=== PATIENT | male | born 1960 | race Caucasian/White ===

== ENCOUNTER 2017-02-05 13:09 | Inpatient (IN) | payer BC ==
[~2017-02-05] VITALS: Ht 177.8 cm; Wt 81.0 kg
[2017-02-05 13:11] VITALS: BP 143/89; PULSE 103; RESP 12; TEMP 99.8; O2SAT 96
[2017-02-05] MEDS ORDERED: RILP25 PO (13:30)
[2017-02-05] MEDS ORDERED: DOLU1TAB PO (13:30)
[2017-02-05] MEDS ORDERED: SODIUM CHLORIDE 0.9% FLUSH 10 ML FLUSH IV FLUSH PRN ×2 (13:30→15:00)
[2017-02-05] MEDS ORDERED: VALA1TAB PO (13:30)
[2017-02-05] MEDS ORDERED: LAMI1TAB8 PO (13:30)
[2017-02-05] MEDS ORDERED: PALI1TAB3 PO (13:30)
--- NOTE | 2017-02-05 13:32 | PD ---
HPI Chief Complaint: Abdominal Pain Time Seen by Provider: 13:24 Travel History International Travel<30 days: No Contact w/Intl Traveler<30days: No Traveled to known affect area: No History of Present Illness HPI This is a 56-year-old male who has a history of well-controlled HIV who presents to the emergency department with 3 days of abdominal distention and discomfort feeling like a pressure in his abdomen all over, associated with nausea and one episode of vomiting yesterday. He has had some loose stools but he took a laxative because he thought he was constipated. He denies any fevers or chills. He's never had abdominal surgery before. He's never had pain like this before. PFSH Past Medical History Medical other: Yes (hiv +) Tetanus Vaccination: Unknown Influenza Vaccination: Yes ?: Not Past Surgical History Surgical History: No Previous Surgery Social History Alcohol Use: No Tobacco Use: No Substance Use: No Allergies-Medications (Allergen,Severity, Reaction): Coded Allergies: Abacavir (Verified Allergy, Intermediate, rash, 02/05/17) Reported Meds & Prescriptions Reported Meds & Active Scripts Active Reported Edurant (Rilpivirine) 25 Mg Tab 25 Mg PO DAILY Tivicay (Dolutegravir Sodium) 50 Mg Tab 50 Mg PO DAILY Lamivudine 300 Mg Tab 300 Mg PO DAILY Paliperidone ER 6 Mg Tab 6 Mg PO DAILY Valacyclovir (Valacyclovir HCl) 1 Gm Tab 1,000 Mg PO DAILY Review of Systems Except as stated in HPI: all other systems reviewed are Neg Physical Exam Narrative GENERAL:Well appearing, no acute distress SKIN: Focused skin assessment warm and dry. HEAD: Atraumatic. Normocephalic. EYES: Pupils equal and round. No injection or drainage. Scleral icterus. ENT: Moist mucous membranes NECK: Trachea midline. CARDIOVASCULAR: Regular rate and rhythm. No murmur appreciated. RESPIRATORY: Clear to auscultation. Breath sounds equal bilaterally. GASTROINTESTINAL: Abdomen soft, distended, tender to palpation in the epigastrium, right upper quadrant and right lower quadrants with no rebound or guarding. Hepatomegaly. MUSCULOSKELETAL: No obvious deformities. NEUROLOGICAL: Awake and alert. No obvious cranial nerve deficits. Moving all extremities. PSYCHIATRIC: Appropriate mood and affect; insight and judgment normal. Data Data Last Documented VS Vital Signs Date Time Temp Pulse Resp B/P Pulse Ox O2 Delivery O2 Flow Rate FiO2 4/12/17 13:42 99 Room Air 02/05/17 13:24 16 02/05/17 13:11 99.8 103 143/89 Orders Complete Blood Count With Diff (02/05/17 13:30) Comprehensive Metabolic Panel (02/05/17 13:30) Lipase (02/05/17 13:30) Prothrombin Time / Inr (Pt) (02/05/17 13:30) Act Partial Throm Time (Ptt) (02/05/17 13:30) Urinalysis - C+S If Indicated (02/05/17 13:30) Us Abdomen Gallbladder (02/05/17 ) Iv Access Insert/Monitor (02/05/17 13:30) Ecg Monitoring (02/05/17 13:30) Oximetry (02/05/17 13:30) Sodium Chloride 0.9% Flush (Ns Flush) (02/05/17 13:30) Piperacil-Tazo 3.375 Gm Premix (Zosyn 3. (02/05/17 14:45) Sodium Chlor 0.9% 1000 Ml Inj (Ns 1000 M (02/05/17 14:45) Sodium Chlor 0.9% 1000 Ml Inj (Ns 1000 M (02/05/17 14:45) Lactic Acid (02/05/17 14:34) Mri Mrcp W/O Contrast (02/05/17 ) Consult Gastroenterology (02/05/17 ) Labs Laboratory Tests Test 02/05/17 02/05/17 13:42 13:49 White Blood Count 9.2 TH/MM3 Red Blood Count 4.80 MIL/MM3 Hemoglobin 15.4 GM/DL Hematocrit 43.9 % Mean Corpuscular Volume 91.5 FL Mean Corpuscular Hemoglobin 32.2 PG Mean Corpuscular Hemoglobin 35.2 % Concent Red Cell Distribution Width 15.7 % Platelet Count 135 TH/MM3 Mean Platelet Volume 8.1 FL Neutrophils (%) (Auto) 75.6 % Lymphocytes (%) (Auto) 13.4 % Monocytes (%) (Auto) 10.6 % Eosinophils (%) (Auto) 0.2 % Basophils (%) (Auto) 0.2 % Neutrophils # (Auto) 7.0 TH/MM3 Lymphocytes # (Auto) 1.2 TH/MM3 Monocytes # (Auto) 1.0 TH/MM3 Eosinophils # (Auto) 0.0 TH/MM3 Basophils # (Auto) 0.0 TH/MM3 CBC Comment DIFF FINAL Differential Comment Prothrombin Time 11.5 SEC Prothromb Time International 1.0 RATIO Ratio Activated Partial 27.9 SEC Thromboplast Time Sodium Level 134 MEQ/L Potassium Level 4.0 MEQ/L Chloride Level 100 MEQ/L Carbon Dioxide Level 26.4 MEQ/L Anion Gap 8 MEQ/L Blood Urea Nitrogen 15 MG/DL Creatinine 1.10 MG/DL Estimat Glomerular Filtration 69 ML/MIN Rate Random Glucose 150 MG/DL Calcium Level 9.2 MG/DL Total Bilirubin 5.9 MG/DL Aspartate Amino Transf 122 U/L (AST/SGOT) Alanine Aminotransferase 309 U/L (ALT/SGPT) Alkaline Phosphatase 75 U/L Total Protein 7.7 GM/DL Albumin 4.3 GM/DL Lipase 2330 U/L Urine Color YELLOW Urine Turbidity CLEAR Urine pH 5.5 Urine Specific [place] 1.023 Urine Protein 100 mg/dL Urine Glucose (UA) NEG mg/dL Urine Ketones 10 mg/dL Urine Occult Blood SMALL Urine Nitrite NEG Urine Bilirubin NEG Urine Urobilinogen 2.0 MG/DL Urine Leukocyte Esterase NEG Urine RBC LESS THAN 1 /hpf Urine WBC 1 /hpf Urine Mucus FEW /lpf Microscopic Urinalysis Comment CULT NOT INDICATED MDM Medical Decision Making Medical Screen Exam Complete: Yes Emergency Medical Condition: Yes Interpretation(s) Temperature is 99.8, mild tachycardia No leukocytosis Total bilirubin is 5.9 Mild transaminitis Lipase is 2330 Last 24 hours Impressions Gall Bladder Ultrasound 02/05/17 0000 Signed Impressions: Service Date/Time: Sunday, February 05, 2017 13:51 - CONCLUSION: Hyperechoic liver characteristic of steatosis. Non-shadowing filling defects within the gallbladder characteristic of thick sludge or noncalcified stones. No evidence of biliary obstructive disease. Bennie Perez MD Differential Diagnosis Pancreatitis, cholecystitis, choledocholithiasis, pancreatic cancer Narrative Course This is a 56-year-old male who presents to the emergency department with 3 days of abdominal discomfort and vomiting. On exam he is jaundiced. He was placed on a monitor and an IV was established. Labs are obtained which demonstrate total bilirubin of 5.9 as well as elevated lipase consistent with pancreatitis. I suspect the patient may have choledocholithiasis. Given he did have a temperature of 99.8 initially, I covered him empirically with Zosyn for early cholangitis. Ultrasound demonstrates some possible noncalcified stones with a normal common bile duct. I spoke to who agreed with MRCP as are first line of imaging. Patient will be admitted for possible choledocholithiasis and pancreatitis. Physician Communication Physician Communication Discussed with Dr. Miller and Dr. Phelps Diagnosis Primary Impression: Pancreatitis Qualified Code: K85.10 - Acute biliary pancreatitis without infection or necrosis Additional Impression: Jaundice Admitting Information Admitting Physician Requests: Admit Edie Leo MD Feb 05, 2017 13:32
[2017-02-05 13:42] VITALS: O2SAT 99
[2017-02-05 13:56] LABS: BASOPHIL % 0.2 % (0.0-2.0); EOSINOPHIL % 0.2 % (0.0-4.0); HEMATOCRIT 43.9 % (39.0-51.0); HEMO FLAGS DIFF FINAL; LYMPH % 13.4 % (9.0-44.0); LYMPHOCYTE # 1.2 TH/MM3 (1.0-4.8); MEAN CELL VOLUME 91.5 FL (80.0-100.0); MEAN CORPUSCULAR HEMOGLOBIN 32.2 PG (27.0-34.0); MEAN CORPUSCULAR HGB CONC 35.2 % (32.0-36.0); MONO % 10.6 % (0.0-8.0); NEUT % 75.6 % (16.0-70.0); PLATELET COUNT 135 TH/MM3 (150-450); RED CELL DISTRIBUTION WIDTH 15.7 % (11.6-17.2); WHITE BLOOD COUNT 9.2 TH/MM3 (4.0-11.0)
[2017-02-05 14:00] LABS: BLOOD, URINE SMALL (NEG); COMMENT (UR) CULT NOT INDICATED; CULTURE IF INDICATED CULT NOT INDICATED; GLUCOSE,URINE NEG (NEG); KETONE, URINE 10 mg/dL (NEG); MUCUS URINE FEW /lpf (OCC); NITRITE,URINE NEG (NEG); PH, URINE 5.5 (5.0-8.5); URINE COLOR YELLOW (YELLW/STRAW)
[2017-02-05 14:05] LABS: APTT (PATIENT) 27.9 SEC (24.3-30.1); PROTHROMBIN TIME - PATIENT 11.5 SEC (9.8-11.6)
[2017-02-05 14:11] LABS: ALT (GPT) 309 U/L (12-78); ANION GAP 8 MEQ/L (5-15); AST (GOT) 122 U/L (15-37); BICARBONATE 26.4 MEQ/L (21.0-32.0); BLOOD UREA NITROGEN 15 MG/DL (7-18); CHLORIDE 100 MEQ/L (98-107); GLOMERULAR FILTRATION RATE 69 ML/MIN (>89); SODIUM (NA) 134 MEQ/L (136-145)
[2017-02-05 14:14] LABS: ALKALINE PHOSPHATASE 75 U/L (45-117); TOTAL BILIRUBIN ADULT 5.9 MG/DL (0.2-1.0)
--- NOTE | 2017-02-05 14:19 | RADRPT ---
EXAM DATE/TIME: 02/05/2017 13:51 [facility] COMPARISON: No previous studies available for comparison. INDICATIONS : Right upper quadrant pain and abdominal distention. MEDICAL HISTORY : HIV. SURGICAL HISTORY : None. ENCOUNTER: Initial ACUITY: 3 days PAIN SCORE: 3/10 LOCATION: Right upper quadrant MEASUREMENTS: LIVER: 22.2 cm length COMMON DUCT: 6 mm RIGHT KIDNEY: 13.4 x 6.9 x 5.6 cm FINDINGS: LIVER: The liver is diffusely hyperechoic. There are no focal lesions or evidence of biliary duct dilatation . COMMON DUCT: No intraluminal mass or stone visualized. GALLBLADDER: None shadowing filling defects are identified in the gallbladder. There is no significant wall thicke lonnie or pericholecystic fluid. PANCREAS: The visualized portions are within normal limits. RIGHT KIDNEY: No evidence of hydronephrosis, stone, or mass. CONCLUSION: Hyperechoic liver characteristic of steatosis. Non-shadowing filling defects within the gallbladder characteristic of thick sludge or noncalcified s tones. No evidence of biliary obstructive disease. Bennie Perez MD on February 05, 2017 at 14:15 Board Certified Radiologist. This report was verified electronically.
[2017-02-05] MEDS ORDERED: PIPERACIL-TAZO 3.375 GM PREMIX 50 ML IV ONE (14:45)
[2017-02-05] MEDS ORDERED: SODIUM CHLOR 0.9% 1000 ML INJ 1,000 ML IV SCH ×2 (14:45)
[2017-02-05] MEDS ORDERED: ACETAMINOPHEN 325 MG TAB PO PRN (15:00)
[2017-02-05] MEDS ORDERED: ONDANSETRON HCL 4 MG/2 ML VIAL IVP PRN (15:00)
[2017-02-05] MEDS ORDERED: BISACODYL 10 MG SUPP RECTAL PRN (15:00)
[2017-02-05] MEDS ORDERED: NALOXONE HCL 0.4 MG/ML AMP IV PRN (15:00)
[2017-02-05 15:06] VITALS: BP 159/80; PULSE 86; RESP 15; O2SAT 98
[2017-02-05] MEDS ORDERED: ENOXAPARIN SODIUM 40 MG/0.4 ML SYRINGE SQ SCH (16:00)
--- NOTE | 2017-02-05 16:20 | HHI.HP ---
HPI Service [facility] Primary [facility] Physician Pawan Espinosa MD Admission Diagnosis pancreatitis, jaundice Diagnoses: Chief Complaint: Abdominal pain Travel History International Travel<30 Days: No Contact w/Intl Traveler <30 Da: No Traveled to Known Affected Are: No History of Present Illness This is a pleasant 56-year-old male who has a history of well-controlled HIV who presents to the emergency department with 3 days of abdominal distention and discomfort feeling like a pressure in his abdomen all over, associated with nausea and one episode of vomiting yesterday. He has had some loose stools but he took a laxative because he thought he was constipated. He denies any fevers or chills. He's never had abdominal surgery before. He's never had pain like this before. seen in Emergency room, as per patient he states the pain is generalized, and continue to be generalized, like 5/10 in intensity as a sharp sensation associated to Nausea and vomit yesterday but today improved. Review of Systems Gastrointestinal: COMPLAINS OF: Abdominal pain, Nausea, Vomiting Past Family Social History Past Medical History HIV on HAART therapy Past Surgical History Denies any Surgical history Reported Medications Reported Meds & Active Scripts Active Reported Edurant (Rilpivirine) 25 Mg Tab 25 Mg PO DAILY Tivicay (Dolutegravir Sodium) 50 Mg Tab 50 Mg PO DAILY Lamivudine 300 Mg Tab 300 Mg PO DAILY Paliperidone ER 6 Mg Tab 6 Mg PO DAILY Valacyclovir (Valacyclovir HCl) 1 Gm Tab 1,000 Mg PO DAILY Allergies: Coded Allergies: Abacavir (Verified Allergy, Intermediate, rash, 02/05/17) Active Ordered Medications Current Medications Medications (Trade) Dose Ordered Sig/Radha Route Start Time Stop Time Status Last Admin (NS 1000 ml Inj) 1,000 ml @ 100 mls/hr Q10H IV 02/05/17 15:00 (NS Flush) 2 ml UNSCH PRN IV FLUSH 02/05/17 15:00 (NS Flush) 2 ml BID IV FLUSH 02/05/17 21:00 (Tylenol) 650 mg Q4H PRN PO 02/05/17 15:00 (Zofran Inj) 4 mg Q6H PRN IVP 02/05/17 15:00 (Dulcolax Supp) 10 mg DAILY PRN RECTAL 02/05/17 15:00 (Colace) 100 mg Q12H PO 02/05/17 18:00 (Lovenox Inj) 40 mg Q24H SQ 02/05/17 16:00 (Narcan Inj) 0.4 mg UNSCH PRN IV 02/05/17 15:00 Family History Mother with Lung Cancer Social History Lives alone and denies any toxic habits. Physical Exam Vital Signs Vital Signs Date Time Temp Pulse Resp B/P Pulse Ox O2 Delivery O2 Flow Rate FiO2 02/05/17 15:06 86 15 159/80 98 Room Air 02/05/17 13:42 99 Room Air 02/05/17 13:24 16 02/05/17 13:11 99.8 103 12 143/89 96 Room Air Physical Exam GENERAL:Well appearing, no acute distress SKIN: Focused skin assessment warm and dry. HEAD: Atraumatic. Normocephalic. EYES: Pupils equal and round. No injection or drainage. Scleral icterus. ENT: Moist mucous membranes NECK: Trachea midline. CARDIOVASCULAR: Regular rate and rhythm. No murmur appreciated. RESPIRATORY: Clear to auscultation. Breath sounds equal bilaterally. GASTROINTESTINAL: Abdomen soft, distended, tender to palpation in the epigastrium, right upper quadrant and right lower quadrants with no rebound or guarding. Hepatomegaly. MUSCULOSKELETAL: No obvious deformities. NEUROLOGICAL: Awake and alert. No obvious cranial nerve deficits. Moving all extremities. PSYCHIATRIC: Appropriate mood and affect; insight and judgment normal. Laboratory Laboratory Tests Test 02/05/17 02/05/17 02/05/17 13:42 13:49 14:40 White Blood Count 9.2 Red Blood Count 4.80 Hemoglobin 15.4 Hematocrit 43.9 Mean Corpuscular Volume 91.5 Mean Corpuscular Hemoglobin 32.2 Mean Corpuscular Hemoglobin 35.2 Concent Red Cell Distribution Width 15.7 Platelet Count 135 Mean Platelet Volume 8.1 Neutrophils (%) (Auto) 75.6 Lymphocytes (%) (Auto) 13.4 Monocytes (%) (Auto) 10.6 Eosinophils (%) (Auto) 0.2 Basophils (%) (Auto) 0.2 Neutrophils # (Auto) 7.0 Lymphocytes # (Auto) 1.2 Monocytes # (Auto) 1.0 Eosinophils # (Auto) 0.0 Basophils # (Auto) 0.0 CBC Comment DIFF FINAL Differential Comment Prothrombin Time 11.5 Prothromb Time International 1.0 Ratio Activated Partial 27.9 Thromboplast Time Sodium Level 134 Potassium Level 4.0 Chloride Level 100 Carbon Dioxide Level 26.4 Anion Gap 8 Blood Urea Nitrogen 15 Creatinine 1.10 Estimat Glomerular Filtration 69 Rate Random Glucose 150 Calcium Level 9.2 Total Bilirubin 5.9 Aspartate Amino Transf 122 (AST/SGOT) Alanine Aminotransferase 309 (ALT/SGPT) Alkaline Phosphatase 75 Total Protein 7.7 Albumin 4.3 Lipase 2330 Urine Color YELLOW Urine Turbidity CLEAR Urine pH 5.5 Urine Specific [place] 1.023 Urine Protein 100 Urine Glucose (UA) NEG Urine Ketones 10 Urine Occult Blood SMALL Urine Nitrite NEG Urine Bilirubin NEG Urine Urobilinogen 2.0 Urine Leukocyte Esterase NEG Urine RBC LESS THAN 1 Urine WBC 1 Urine Mucus FEW Microscopic Urinalysis Comment CULT NOT INDICATED Lactic Acid Level 1.0 Result Diagram: 02/05/17 1342 02/05/17 1342 Imaging Last Impressions Gall Bladder Ultrasound 02/05/17 0000 Signed Impressions: Service Date/Time: Sunday, February 05, 2017 13:51 - CONCLUSION: Hyperechoic liver characteristic of steatosis. Non-shadowing filling defects within the gallbladder characteristic of thick sludge or noncalcified stones. No evidence of biliary obstructive disease. Bennie Perez MD Assessment and Plan Assessment and Plan 1. Acute Pancreatitis, Lipase 2330 2. Hyperbilirubinemia 3. Cholecystitis suspected on admission was given IV antibiotics, he had low grade fever and probable no Leukocytosis due to HIV consult made to Doctor Miller by ER specialist recommended for MRCP tomorrow. 4. HIV well controlled on anti retroviral Therapy. DVT prophylaxis with Lovenox GI prophylaxis with Protonix Discussed with ER specialist Doctor Edie meza. Code Status Full Code. Discussed Condition With Patient and ER specialist. Physician Certification 2 Midnight Certification Type: Admission for Inpatient Services Order for Inpatient Services The services are ordered in accordance with Medicare regulations or non- Medicare payer requirements, as applicable. In the case of services not specified as inpatient-only, they are appropriately provided as inpatient services in accordance with the 2-midnight benchmark. Estimated LOS (days): 3 days is the estimated time the patient will need to remain in the hospital, assuming treatment plan goals are met and no additional complications. Post-Hospital Plan: Home Rudy Pickard MD Feb 05, 2017 16:20
--- NOTE | 2017-02-05 16:30 | PD.CONS ---
HPI History of Present Illness This is a 56 year old [gentleman] came to the hospital for evaluation of abdominal pain that began Friday night. He describes this as epigastric pressure that felt like his "intestines were going to explode." He states this was constant without any radiation. It seemed to be aggravated by po intake. He threw up yesterday a couple times after trying to drink water and states that he has felt bloated. He thought he was constipated and took a laxative but it didn't help, he thinks it was senna. He had watery stool after, no blood or mucus. He did not notice any jaundice, but states he was told this in the ER. His urine has been dark since this morning. He thinks he had pancreatitis years ago from medications. Denies new medications. Denies exacerbation by fatty meal. NO weight loss. NO ETOH. No prev hx gallstones. He was diagnosed with HIV in 1983 and is on HAART. He states his viral load is undetectable. 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, medication induced Colon polyps Past Surgical History Colonoscopy 2012, found polyps Coded Allergies: Abacavir (Verified Allergy, Intermediate, rash, 02/05/17) Medications Allergies Coded Allergies Type Severity Reaction Last Updated Verified Abacavir Allergy Intermediate rash 02/05/17 Yes Active Scripts Medications Dose Route/Sig Days Date Category Edurant (Rilpivirine) 25 Mg Tab 25 Mg PO DAILY 02/05/17 Reported Tivicay (Dolutegravir Sodium) 50 Mg Tab 50 Mg PO BID 02/05/17 Reported Lamivudine 300 Mg Tab 300 Mg PO DAILY 02/05/17 Reported Paliperidone ER 6 Mg Tab 6 Mg PO DAILY 02/05/17 Reported Valacyclovir (Valacyclovir HCl) 1 Gm Tab 1,000 Mg PO DAILY 02/05/17 Reported Family History Mother had lung ca. Social History No ETOH No tobacco Review of Systems Constitutional: DENIES: Fever, Weight loss Eyes: DENIES: Blurred vision Ears, nose, mouth, throat: DENIES: Hearing loss Respiratory: DENIES: Cough, Shortness of breath Cardiovascular: DENIES: Chest pain, Palpitations Gastrointestinal: COMPLAINS OF: Abdominal pain, Nausea, Vomiting, DENIES: Black stools, Bloody stools, Constipation, Diarrhea, Heartburn Musculoskeletal: DENIES: Joint pain Integumentary: DENIES: Abnormal pigmentation Hematologic/lymphatic: DENIES: Bruising Psychiatric: DENIES: Anxiety GI Exam Vitals I&O Vital Signs Date Time Temp Pulse Resp B/P Pulse Ox O2 Delivery O2 Flow Rate FiO2 02/05/17 15:06 86 15 159/80 98 Room Air 02/05/17 13:42 99 Room Air 02/05/17 13:24 16 02/05/17 13:11 99.8 103 12 143/89 96 Room Air Imaging Last Impressions Gall Bladder Ultrasound 02/05/17 0000 Signed Impressions: Service Date/Time: Sunday, February 05, 2017 13:51 - CONCLUSION: Hyperechoic liver characteristic of steatosis. Non-shadowing filling defects within the gallbladder characteristic of thick sludge or noncalcified stones. No evidence of biliary obstructive disease. Bennie Perez MD Laboratory Test 02/05/17 02/05/17 02/05/17 13:42 13:49 14:40 White Blood Count 9.2 TH/MM3 Red Blood Count 4.80 MIL/MM3 Hemoglobin 15.4 GM/DL Hematocrit 43.9 % Mean Corpuscular Volume 91.5 FL Mean Corpuscular Hemoglobin 32.2 PG Mean Corpuscular Hemoglobin 35.2 % Concent Red Cell Distribution Width 15.7 % Platelet Count 135 TH/MM3 Mean Platelet Volume 8.1 FL Neutrophils (%) (Auto) 75.6 % Lymphocytes (%) (Auto) 13.4 % Monocytes (%) (Auto) 10.6 % Eosinophils (%) (Auto) 0.2 % Basophils (%) (Auto) 0.2 % Neutrophils # (Auto) 7.0 TH/MM3 Lymphocytes # (Auto) 1.2 TH/MM3 Monocytes # (Auto) 1.0 TH/MM3 Eosinophils # (Auto) 0.0 TH/MM3 Basophils # (Auto) 0.0 TH/MM3 CBC Comment DIFF FINAL Differential Comment Prothrombin Time 11.5 SEC Prothromb Time International 1.0 RATIO Ratio Activated Partial 27.9 SEC Thromboplast Time Sodium Level 134 MEQ/L Potassium Level 4.0 MEQ/L Chloride Level 100 MEQ/L Carbon Dioxide Level 26.4 MEQ/L Anion Gap 8 MEQ/L Blood Urea Nitrogen 15 MG/DL Creatinine 1.10 MG/DL Estimat Glomerular Filtration 69 ML/MIN Rate Random Glucose 150 MG/DL Calcium Level 9.2 MG/DL Total Bilirubin 5.9 MG/DL Aspartate Amino Transf 122 U/L (AST/SGOT) Alanine Aminotransferase 309 U/L (ALT/SGPT) Alkaline Phosphatase 75 U/L Total Protein 7.7 GM/DL Albumin 4.3 GM/DL Lipase 2330 U/L Urine Color YELLOW Urine Turbidity CLEAR Urine pH 5.5 Urine Specific [place] 1.023 Urine Protein 100 mg/dL Urine Glucose (UA) NEG mg/dL Urine Ketones 10 mg/dL Urine Occult Blood SMALL Urine Nitrite NEG Urine Bilirubin NEG Urine Urobilinogen 2.0 MG/DL Urine Leukocyte Esterase NEG Urine RBC LESS THAN 1 /hpf Urine WBC 1 /hpf Urine Mucus FEW /lpf Microscopic Urinalysis Comment CULT NOT INDICATED Lactic Acid Level 1.0 mmol/L Physical Examination HEENT: EOMI; normocephalic; atraumatic; + icterus. NECK: Neck is supple CHEST: CTA CARDIAC: RRR ABDOMEN: Soft, mildly bloated, epigastric tenderness; no hepatosplenomegaly; bowel sounds are present in all four quadrants. EXTREMITIES: No clubbing, cyanosis, or edema. SKIN: Normal; no rash; no jaundice. MANAGER PROVIDER RELATIONS: No focal deficits; alert and oriented times three. Assessment and Plan Plan ASSESSMENT: - Gallstone Pancreatitis. Gall Bladder Ultrasound (02/05/17)----> Hyperechoic liver characteristic of steatosis. Non-shadowing filling defects within the gallbladder characteristic of thick sludge or noncalcified stones. No evidence of biliary obstructive disease. LFTs elevated in obstructive pattern. ? Choledocholithiasis vs sludge. Will get MRCP to r/o choledocholithiasis/ dilatation. NPO for now. T. Bili 5.9, AST 122, ALT 309, Alk Phosph 75, Lipase 2330. - Elevated LFTs, ? choledocholithiasis vs passed stone vs. sludge. Will get MRCP. - Cholelithiasis vs. thick sludge on US. Will get MRCP. - Abdominal pain, bloating x 3 days with associated n/v, jaundice. - HIV, Dx 1983, on HAART. States viral load undetectable. PLAN: - NPO - Stat MRCP - IVF - PPI - CBC, CMP, Lipase in am - Consider ERCP if CBD dilatation or choledocholithiasis on MRCP - Consider GS if MRCP negative - Further recommendations to follow based on results of above - Pt seen and examined by Dr. Mckeon and myself and this note is written on his behalf Tegan Medrano Feb 05, 2017 16:30
[2017-02-05] MEDS: SODIUM CHLOR 0.9% 1000 ML INJ 1,000 ML IV SCH (16:44)
[2017-02-05] MEDS: DOCUSATE SODIUM 100 MG CAP PO SCH (16:44)
[2017-02-05 16:46] VITALS: BP 144/83; PULSE 88; RESP 15; O2SAT 98
--- NOTE | 2017-02-05 18:03 | RADRPT ---
EXAM DATE/TIME: 02/05/2017 17:21 [facility] COMPARISON: US ABDOMEN - GALLBLADDER, February 05, 2017, 13:51. INDICATIONS : Abdominal pain. Obstruction. MEDICAL HISTORY : HIV. SURGICAL HISTORY : None. ENCOUNTER: Subsequent ACUITY: 1 day PAIN SCORE: 4/10 LOCATION: abdomen. TECHNIQUE: Multiplanar, multisequence magnetic resonance imaging of the abdomen was performed. High-resolution 3D dataset was utilized to reconstruct maximum-intensity projection (MIP) images. FINDINGS: INTRAHEPATIC BILE DUCTS: Within normal limits. No significant anatomical variant is present. EXTRAHEPATIC BILE DUCTS: The common bile duct measures 6.4 mm. No stone or filling defect is identified. GALLBLADDER: Numerous stones are identified in the gallbladder. There is mild pericholecystic fluid. LIVER: The liver is enlarged and demonstrates decreased density and a post phase imaging. There are no focal lesions. Minimal fluid is identified along the liver margins. PANCREAS: The main pancreatic duct is normal in size. There is no significant anatomical variant. Minimal T2 h yperintensity is seen surrounding the pancreas. Signal intensity is otherwise within normal limits. No mass is visualized on this non-contrast exam. OTHER: The remaining visualized structures demonstrate no acute abnormality on this non-contrast exam. Multi ple small bilateral renal cysts are noted. The spleen is enlarged measuring 17 cm in craniocaudad dimension. CONCLUSION: Cholelithiasis with minimal ascites and pericholecystic fluid. No evidence of biliary obstructive disease. Possible mild pancreatitis. Hepatosplenomegaly with significant hepatic steatosis. No evidence of suspicious mass or lymphadenopathy. Bennie Perez MD on February 05, 2017 at 17:53 Board Certified Radiologist. This report was verified electronically.
[2017-02-05 20:00] VITALS: BP 134/81; PULSE 86; RESP 18; TEMP 101; O2SAT 94
[2017-02-05 21:04] LABS: MEAN CORPUSCULAR HGB CONC 36.2 % (32.0-36.0)
[2017-02-05] MEDS: PIPERACIL-TAZO 3.375 GM PREMIX 50 ML IV SCH (21:47)
[2017-02-05] MEDS: DOLUTEGRAVIR SODIUM 50 MG TAB PO SCH (21:48)
[2017-02-05] MEDS: SODIUM CHLORIDE 0.9% FLUSH 10 ML FLUSH IV FLUSH SCH (21:51)
[2017-02-06] VITALS: BP 126/61; PULSE 72; RESP 16; TEMP 99.8; O2SAT 93
[2017-02-06] MEDS: SODIUM CHLOR 0.9% 1000 ML INJ 1,000 ML IV SCH ×3 (00:26→22:44)
[2017-02-06 04:00] VITALS: BP 128/73; PULSE 73; RESP 16; TEMP 97.9; O2SAT 93
[2017-02-06 04:22] LABS: AUTOMATED NEUTROPHIL # 5.2 TH/MM3 (1.8-7.7); BASOPHIL % 0.2 % (0.0-2.0); EOSINOPHIL % 0.4 % (0.0-4.0); HEMATOCRIT 36.7 % (39.0-51.0); LYMPH % 17.2 % (9.0-44.0); LYMPHOCYTE # 1.3 TH/MM3 (1.0-4.8); MEAN CELL VOLUME 90.7 FL (80.0-100.0); MEAN CORPUSCULAR HEMOGLOBIN 32.8 PG (27.0-34.0); MONO % 11.1 % (0.0-8.0); NEUT % 71.1 % (16.0-70.0); PLATELET COUNT 121 TH/MM3 (150-450); RED BLOOD COUNT 4.04 MIL/MM3 (4.50-5.90); RED CELL DISTRIBUTION WIDTH 15.7 % (11.6-17.2); WHITE BLOOD COUNT 7.3 TH/MM3 (4.0-11.0)
[2017-02-06 05:02] LABS: HEMO FLAGS AUTO DIFF
[2017-02-06] MEDS: DOCUSATE SODIUM 100 MG CAP PO SCH ×2 (05:04→16:44)
[2017-02-06] MEDS: PIPERACIL-TAZO 3.375 GM PREMIX 50 ML IV SCH ×4 (05:04→22:43)
[2017-02-06 06:00] LABS: ALKALINE PHOSPHATASE 59 U/L (45-117); ALT (GPT) 192 U/L (12-78); ANION GAP 7 MEQ/L (5-15); AST (GOT) 60 U/L (15-37); BICARBONATE 26.2 MEQ/L (21.0-32.0); BLOOD UREA NITROGEN 12 MG/DL (7-18); CHLORIDE 104 MEQ/L (98-107); GLOMERULAR FILTRATION RATE 85 ML/MIN (>89); SODIUM (NA) 137 MEQ/L (136-145); TOTAL BILIRUBIN ADULT 4.9 MG/DL (0.2-1.0)
[2017-02-06 06:53] LABS: SCAN/DIFF AUTO DIFF CONFIRMED
[2017-02-06 08:00] VITALS: BP 136/77; PULSE 71; RESP 18; TEMP 99.2; O2SAT 96
[2017-02-06] MEDS: DOLUTEGRAVIR SODIUM 50 MG TAB PO SCH ×2 (08:59→22:43)
[2017-02-06] MEDS: RILPIVIRINE 25 MG TAB PO SCH (08:59)
[2017-02-06] MEDS: SODIUM CHLORIDE 0.9% FLUSH 10 ML FLUSH IV FLUSH SCH ×2 (08:59→21:00)
[2017-02-06] MEDS: PALIPERIDONE ER 6 MG TAB PO SCH (08:59)
[2017-02-06] MEDS: valACYclovir HCL 500 MG TAB PO SCH (09:03)
--- NOTE | 2017-02-06 09:14 | HHI.PR ---
Subjective Remarks This is a pleasant 56-year-old male who has a history of well-controlled HIV who presents to the emergency department with 3 days of abdominal distention and discomfort feeling like a pressure in his abdomen all over, associated with nausea and one episode of vomiting yesterday. He has had some loose stools but he took a laxative because he thought he was constipated. He denies any fevers or chills. He's never had abdominal surgery before. He's never had pain like this before. seen in Emergency room, as per patient he states the pain is generalized, and continue to be generalized, like 5/10 in intensity as a sharp sensation associated to Nausea and vomit yesterday but today improved. 02/06: Seen in his bedroom in the presence of nurse Cami Judah, he continue with abdominal pain, awaiting evaluation by GI specialist, his MRCP gave no evidence of pericholecystic fluid, no biliary obstruction, possible mild pancreatitis, Hepatosplenomegaly with significant hepatic steatosis, Cholelithiasis, asked for General customer care specialist evaluation okay for clear liquids, hold anticoagulation, continue to trend liver enzymes and Lipase, NPO after Midnight and Cholecystectomy for tomorrow. No Nausea, vomit or diarrhea. Objective Vital Signs Date Time Temp Pulse Resp B/P Pulse Ox O2 Delivery O2 Flow Rate FiO2 02/06/17 08:00 99.2 71 18 136/77 96 02/06/17 04:00 97.9 73 16 128/73 93 02/06/17 00:00 99.8 72 16 126/61 93 02/05/17 22:48 18 02/05/17 20:00 101.0 86 18 134/81 94 02/05/17 16:46 88 15 144/83 98 Room Air 02/05/17 15:06 86 15 159/80 98 Room Air 02/05/17 13:42 99 Room Air 02/05/17 13:24 16 02/05/17 13:11 99.8 103 12 143/89 96 Room Air I/O 02/05/17 02/05/17 02/05/17 02/06/17 02/06/17 02/06/17 07:00 15:00 23:00 07:00 15:00 23:00 Intake Total 1003 ml Output Total 600 ml 500 ml Balance -600 ml -500 ml 1003 ml Intake IV Total 1003 ml Output Urine Total 600 ml 500 ml # Voids 1 # Bowel Movements 0 0 Result Diagram: 02/06/17 0330 02/06/17 0330 Imaging Last Impressions Cholangiopancreatography MRI 02/05/17 1630 Signed Impressions: Service Date/Time: Sunday, February 05, 2017 17:21 - CONCLUSION: Cholelithiasis with minimal ascites and pericholecystic fluid. No evidence of biliary obstructive disease. Possible mild pancreatitis. Hepatosplenomegaly with significant hepatic steatosis. No evidence of suspicious mass or lymphadenopathy. Bennie Perez MD Gall Bladder Ultrasound 02/05/17 0000 Signed Impressions: Service Date/Time: Sunday, February 05, 2017 13:51 - CONCLUSION: Hyperechoic liver characteristic of steatosis. Non-shadowing filling defects within the gallbladder characteristic of thick sludge or noncalcified stones. No evidence of biliary obstructive disease. Bennie Perez MD Procedures MRCP Other Results Laboratory Tests Test 02/05/17 02/05/17 02/05/17 02/06/17 13:42 13:49 14:40 03:30 Prothrombin Time 11.5 SEC Prothromb Time International 1.0 RATIO Ratio Activated Partial 27.9 SEC Thromboplast Time Urine Color YELLOW Urine Turbidity CLEAR Urine pH 5.5 Urine Specific [place] 1.023 Urine Protein 100 mg/dL Urine Glucose (UA) NEG mg/dL Urine Ketones 10 mg/dL Urine Occult Blood SMALL Urine Nitrite NEG Urine Bilirubin NEG Urine Urobilinogen 2.0 MG/DL Urine Leukocyte Esterase NEG Urine RBC LESS THAN 1 /hpf Urine WBC 1 /hpf Urine Mucus FEW /lpf Microscopic Urinalysis Comment CULT NOT INDICATED Lactic Acid Level 1.0 mmol/L White Blood Count 7.3 TH/MM3 Red Blood Count 4.04 MIL/MM3 Hemoglobin 13.3 GM/DL Hematocrit 36.7 % Mean Corpuscular Volume 90.7 FL Mean Corpuscular Hemoglobin 32.8 PG Mean Corpuscular Hemoglobin 36.2 % Concent Red Cell Distribution Width 15.7 % Platelet Count 121 TH/MM3 Mean Platelet Volume 8.0 FL Neutrophils (%) (Auto) 71.1 % Lymphocytes (%) (Auto) 17.2 % Monocytes (%) (Auto) 11.1 % Eosinophils (%) (Auto) 0.4 % Basophils (%) (Auto) 0.2 % Neutrophils # (Auto) 5.2 TH/MM3 Lymphocytes # (Auto) 1.3 TH/MM3 Monocytes # (Auto) 0.8 TH/MM3 Eosinophils # (Auto) 0.0 TH/MM3 Basophils # (Auto) 0.0 TH/MM3 CBC Comment AUTO DIFF Differential Comment AUTO DIFF CONFIRMED Sodium Level 137 MEQ/L Potassium Level 4.0 MEQ/L Chloride Level 104 MEQ/L Carbon Dioxide Level 26.2 MEQ/L Anion Gap 7 MEQ/L Blood Urea Nitrogen 12 MG/DL Creatinine 0.92 MG/DL Estimat Glomerular Filtration 85 ML/MIN Rate Random Glucose 136 MG/DL Calcium Level 8.2 MG/DL Total Bilirubin 4.9 MG/DL Aspartate Amino Transf 60 U/L (AST/SGOT) Alanine Aminotransferase 192 U/L (ALT/SGPT) Alkaline Phosphatase 59 U/L Total Protein 6.3 GM/DL Albumin 3.3 GM/DL Lipase 552 U/L Objective Remarks GENERAL:Well appearing, no acute distress SKIN: Focused skin assessment warm and dry. HEAD: Atraumatic. Normocephalic. EYES: Pupils equal and round. No injection or drainage. Scleral icterus. ENT: Moist mucous membranes NECK: Trachea midline. CARDIOVASCULAR: Regular rate and rhythm. No murmur appreciated. RESPIRATORY: Clear to auscultation. Breath sounds equal bilaterally. GASTROINTESTINAL: Abdomen soft, distended, tender to palpation in the epigastrium, right upper quadrant and right lower quadrants with no rebound or guarding. Hepatomegaly. MUSCULOSKELETAL: No obvious deformities. NEUROLOGICAL: Awake and alert. No obvious cranial nerve deficits. Moving all extremities. PSYCHIATRIC: Appropriate mood and affect; insight and judgment normal. 1. Acute Pancreatitis, Lipase 2330 2. Hyperbilirubinemia 3. Cholecystitis suspected on admission was given IV antibiotics, he had low grade fever and probable no Leukocytosis due to HIV consult made to Doctor Miller by ER specialist recommended for MRCP tomorrow. 4. HIV well controlled on anti retroviral Therapy. DVT prophylaxis with Lovenox GI prophylaxis with Protonix Discussed with ER specialist Doctor Edie Leo appreciated. Code Status Full Code. Discussed Condition With Medications and IVs Current Medications Medications (Trade) Dose Ordered Sig/Radha Route Start Time Stop Time Status Last Admin (NS 1000 ml Inj) 1,000 ml @ 100 mls/hr Q10H IV 02/05/17 15:00 02/06/17 00:26 (NS Flush) 2 ml UNSCH PRN IV FLUSH 02/05/17 15:00 (NS Flush) 2 ml BID IV FLUSH 02/05/17 21:00 02/05/17 21:51 (Tylenol) 650 mg Q4H PRN PO 02/05/17 15:00 02/05/17 21:48 (Zofran Inj) 4 mg Q6H PRN IVP 02/05/17 15:00 (Dulcolax Supp) 10 mg DAILY PRN RECTAL 02/05/17 15:00 (Colace) 100 mg Q12H PO 02/05/17 18:00 (Lovenox Inj) 40 mg Q24H SQ 02/05/17 16:00 Hold Naloxone HCl 0.4 mg 0.4 mg UNSCH PRN IV 02/05/17 15:00 (Zosyn 3.375 Gm Premix) 50 ml @ 100 mls/hr Q6H IV 02/05/17 21:00 02/06/17 08:59 (Epivir) 300 mg DAILY PO 02/06/17 09:00 02/06/17 08:59 (Invega Er) 6 mg DAILY PO 02/06/17 09:00 02/06/17 08:59 (Edurant) 25 mg DAILY PO 02/06/17 09:00 02/06/17 08:59 (Valtrex) 1,000 mg DAILY PO 02/06/17 09:00 02/06/17 09:03 A/P Assessment and Plan 1. Acute Pancreatitis, Lipase 2330 on admission today 552. probable secondary to Cholelithiasis. 2. Hyperbilirubinemia trending down. 3. Cholecystitis suspected on admission was given IV antibiotics, he had low grade fever and probable no Leukocytosis due to HIV, General Surgery consulted will perform Cholecystectomy tomorrow. 4. HIV well controlled on anti retroviral Therapy. continue DVT prophylaxis with Lovenox GI prophylaxis with Protonix Code Status Full Code. Discussed Condition With Patient and nurse Miss Bruno in the room. Discharge Planning Expected in two days. Rudy Pickard MD Feb 06, 2017 09:13
[2017-02-06 12:00] VITALS: BP 143/91; PULSE 78; RESP 17; TEMP 98.9; O2SAT 97
--- NOTE | 2017-02-06 15:09 | PD.CONS ---
cc: Dewey Arreguin MD [facility] Service DAILY PROGRESS NOTE FOR SURGICAL ATTENDING, DR. DEWEY ARREGUIN General Surgery Consult Requested By Dr. Lenin Gage Reason for Consult Cholelithiasis Primary Care Physician Pawan Espinosa MD History of Present Illness This is a 56-year-old male with a past medical history significant for HIV ( compliant with medications). He developed severe abdominal pain at home on Friday evening associated with nausea vomiting and bloating. He notes that he had pizza at 5 PM for dinner that evening. The patient has never experienced pain like this before. The patient's laboratory work is significant for elevated total bilirubin, elevated AST, elevated ALT, and elevated alkaline Love. On admission his lipase was 2330. Currently it is 552. A ultrasound of the gallbladder showed thick sludge. MRCP was done due to liver enzymes that showed cholelithiasis with pericholecystic fluid and no obstructive disease. A General Surgery consultation has been requested for evaluation of removal of gallbladder. Review of Systems Constitutional: DENIES: Weight gain, Chills Endocrine: DENIES: Polydipsia, Polyuria, Polyphagia Eyes: DENIES: Eye inflammation, Eye pain Ears, nose, mouth, throat: DENIES: Tinnitus, Hearing loss Respiratory: DENIES: Cough, Snoring Cardiovascular: DENIES: Chest pain Gastrointestinal: COMPLAINS OF: Abdominal pain, Nausea, Vomiting Genitourinary: DENIES: Urgency, Hematuria Musculoskeletal: DENIES: Joint pain Integumentary: DENIES: Abnormal pigmentation Hematologic/lymphatic: DENIES: Bruising Immunologic/allergic: DENIES: Eczema Neurologic: DENIES: Headache, Localized weakness Psychiatric: DENIES: Mood changes, Depression, Hallucinations Past Family Social History Past Medical History HIV (compliant with medications) Past Surgical History None Reported Medications Current Medications Medications (Trade) Dose Ordered Sig/Radha Route PRN Reason Start Time Stop Time Status Last Admin Dose Admin Sodium Chloride (NS 1000 ml Inj) 1,000 ml @ 100 mls/hr Q10H IV 02/05/17 15:00 02/06/17 10:52 Sodium Chloride (NS Flush) 2 ml UNSCH PRN IV FLUSH FLUSH AFTER USING IV ACCESS 02/05/17 15:00 Sodium Chloride (NS Flush) 2 ml BID IV FLUSH 02/05/17 21:00 02/05/17 21:51 Acetaminophen (Tylenol) 650 mg Q4H PRN PO TEMP > 100.4 02/05/17 15:00 02/05/17 21:48 Ondansetron HCl (Zofran Inj) 4 mg Q6H PRN IVP NAUSEA OR VOMITING 02/05/17 15:00 Bisacodyl (Dulcolax Supp) 10 mg DAILY PRN RECTAL CONSTIPATION 02/05/17 15:00 Docusate Sodium (Colace) 100 mg Q12H PO 02/05/17 18:00 Enoxaparin Sodium (Lovenox Inj) 40 mg Q24H SQ 02/05/17 16:00 Hold Naloxone HCl 0.4 mg 0.4 mg UNSCH PRN IV SEE LABEL COMMENTS 02/05/17 15:00 Piperacillin Sod/ Tazobactam Sod (Zosyn 3.375 Gm Premix) 50 ml @ 100 mls/hr Q6H IV 02/05/17 21:00 02/06/17 16:21 Lamivudine (Epivir) 300 mg DAILY PO 02/06/17 09:00 02/06/17 08:59 Paliperidone Palmitate (Invega Er) 6 mg DAILY PO 02/06/17 09:00 02/06/17 08:59 Rilpivirine (Edurant) 25 mg DAILY PO 02/06/17 09:00 02/06/17 08:59 Valacyclovir HCl (Valtrex) 1,000 mg DAILY PO 02/06/17 09:00 02/06/17 09:03 Current Medications Sodium Chloride 2 ml 2 ml UNSCH PRN IV FLUSH FLUSH AFTER USING IV ACCESS; Start 02/05/17 at 13:30; Status Cancel Piperacillin Sod/ Tazobactam Sod 50 ml @ 100 mls/hr ONCE ONCE IV Last administered on 02/05/17 14:44; Start 02/05/17 at 14:45; Stop 02/05/17 at 15:14 ; Status DC Sodium Chloride 1,000 ml @ 999 mls/hr Q1H1M IV Last administered on 02/05/17 14:44; Start 02/05/17 at 14:45; Stop 02/05/17 at 15:45; Status DC Sodium Chloride 1,000 ml @ 999 mls/hr Q1H1M IV Last administered on 02/05/17 15:18; Start 02/05/17 at 14:45; Stop 02/05/17 at 15:45; Status DC Sodium Chloride (NS 1000 ml Inj) 1,000 ml @ 100 mls/hr Q10H IV Last administered on 02/06/17 10:52; Start 02/05/17 at 15:00 Sodium Chloride (NS Flush) 2 ml UNSCH PRN IV FLUSH FLUSH AFTER USING IV ACCESS ; Start 02/05/17 at 15:00 Sodium Chloride (NS Flush) 2 ml BID IV FLUSH Last administered on 02/05/17 21: 51; Start 02/05/17 at 21:00 Acetaminophen (Tylenol) 650 mg Q4H PRN PO TEMP > 100.4 Last administered on 21:48; Start 02/05/17 at 15:00 Ondansetron HCl (Zofran Inj) 4 mg Q6H PRN IVP NAUSEA OR VOMITING; Start at 15:00 Bisacodyl (Dulcolax Supp) 10 mg DAILY PRN RECTAL CONSTIPATION; Start 02/05/17 at 15:00 Docusate Sodium (Colace) 100 mg Q12H PO ; Start 02/05/17 at 18:00 Enoxaparin Sodium (Lovenox Inj) 40 mg Q24H SQ ; Start 02/05/17 at 16:00; Status Hold Naloxone HCl 0.4 mg 0.4 mg UNSCH PRN IV SEE LABEL COMMENTS; Start 02/05/17 at 15:00 Piperacillin Sod/ Tazobactam Sod (Zosyn 3.375 Gm Premix) 50 ml @ 100 mls/hr Q6H IV Last administered on 02/06/17 16:21; Start 02/05/17 at 21:00 Lamivudine (Epivir) 300 mg DAILY PO Last administered on 02/06/17 08:59; Start 02/06/17 at 09:00 Paliperidone Palmitate (Invega Er) 6 mg DAILY PO Last administered on 08:59; Start 02/06/17 at 09:00 Rilpivirine (Edurant) 25 mg DAILY PO Last administered on 02/06/17 08:59; Start 02/06/17 at 09:00 Valacyclovir HCl (Valtrex) 1,000 mg DAILY PO Last administered on 02/06/17 09: 03; Start 02/06/17 at 09:00 See chart Allergies: Coded Allergies: Abacavir (Verified Allergy, Intermediate, rash, 02/05/17) Active Ordered Medications Current Medications Medications (Trade) Dose Ordered Sig/Radha Route Start Time Stop Time Status Last Admin (NS 1000 ml Inj) 1,000 ml @ 100 mls/hr Q10H IV 02/05/17 15:00 02/06/17 10:52 (NS Flush) 2 ml UNSCH PRN IV FLUSH 02/05/17 15:00 (NS Flush) 2 ml BID IV FLUSH 02/05/17 21:00 02/05/17 21:51 (Tylenol) 650 mg Q4H PRN PO 02/05/17 15:00 02/05/17 21:48 (Zofran Inj) 4 mg Q6H PRN IVP 02/05/17 15:00 (Dulcolax Supp) 10 mg DAILY PRN RECTAL 02/05/17 15:00 (Colace) 100 mg Q12H PO 02/05/17 18:00 (Lovenox Inj) 40 mg Q24H SQ 02/05/17 16:00 Hold Naloxone HCl 0.4 mg 0.4 mg UNSCH PRN IV 02/05/17 15:00 (Zosyn 3.375 Gm Premix) 50 ml @ 100 mls/hr Q6H IV 02/05/17 21:00 02/06/17 08:59 (Epivir) 300 mg DAILY PO 02/06/17 09:00 02/06/17 08:59 (Invega Er) 6 mg DAILY PO 02/06/17 09:00 02/06/17 08:59 (Edurant) 25 mg DAILY PO 02/06/17 09:00 02/06/17 08:59 (Valtrex) 1,000 mg DAILY PO 02/06/17 09:00 02/06/17 09:03 Family History Brother had gallbladder removed Social History Denies tobacco use Denies EtOH use Denies illicit drug use Physical Exam Vital Signs Vital Signs Date Time Temp Pulse Resp B/P Pulse Ox O2 Delivery O2 Flow Rate FiO2 02/06/17 12:00 98.9 78 17 143/91 97 02/06/17 08:00 99.2 71 18 136/77 96 02/06/17 04:00 97.9 73 16 128/73 93 02/06/17 00:00 99.8 72 16 126/61 93 02/05/17 22:48 18 02/05/17 20:00 101.0 86 18 134/81 94 02/05/17 16:46 88 15 144/83 98 Room Air 02/05/17 15:06 86 15 159/80 98 Room Air Physical Exam GENERAL: male resting in bed in no acute distress SKIN: Warm and dry. HEAD: Atraumatic. Normocephalic. EYES: Pupils equal and round. No scleral icterus. No injection or drainage. ENT: No nasal bleeding or discharge. Mucous membranes pink and moist. NECK: Trachea midline. CARDIOVASCULAR: Regular rate and rhythm. RESPIRATORY: No accessory muscle use. Clear to auscultation. Breath sounds equal bilaterally. GASTROINTESTINAL: Abdomen soft, mild tenderness with deep palpation in the right upper quadrant. No visible scars umbilical hernia. MUSCULOSKELETAL: Extremities without clubbing, cyanosis, or edema. No obvious deformities. NEUROLOGICAL: Awake and alert. No obvious cranial nerve deficits. Motor grossly within normal limits. Five out of 5 muscle strength in the arms and legs. Normal speech. PSYCHIATRIC: Appropriate mood and affect; insight and judgment normal. Laboratory Laboratory Tests Test 02/06/17 03:30 White Blood Count 7.3 Red Blood Count 4.04 Hemoglobin 13.3 Hematocrit 36.7 Mean Corpuscular Volume 90.7 Mean Corpuscular Hemoglobin 32.8 Mean Corpuscular Hemoglobin 36.2 Concent Red Cell Distribution Width 15.7 Platelet Count 121 Mean Platelet Volume 8.0 Neutrophils (%) (Auto) 71.1 Lymphocytes (%) (Auto) 17.2 Monocytes (%) (Auto) 11.1 Eosinophils (%) (Auto) 0.4 Basophils (%) (Auto) 0.2 Neutrophils # (Auto) 5.2 Lymphocytes # (Auto) 1.3 Monocytes # (Auto) 0.8 Eosinophils # (Auto) 0.0 Basophils # (Auto) 0.0 CBC Comment AUTO DIFF Differential Comment AUTO DIFF CONFIRMED Sodium Level 137 Potassium Level 4.0 Chloride Level 104 Carbon Dioxide Level 26.2 Anion Gap 7 Blood Urea Nitrogen 12 Creatinine 0.92 Estimat Glomerular Filtration 85 Rate Random Glucose 136 Calcium Level 8.2 Total Bilirubin 4.9 Aspartate Amino Transf 60 (AST/SGOT) Alanine Aminotransferase 192 (ALT/SGPT) Alkaline Phosphatase 59 Total Protein 6.3 Albumin 3.3 Lipase 552 Result Diagram: 02/06/17 0330 02/06/17 0330 Imaging Last 48 hours Impressions Cholangiopancreatography MRI 02/05/17 1630 Signed Impressions: Service Date/Time: Sunday, February 05, 2017 17:21 - CONCLUSION: Cholelithiasis with minimal ascites and pericholecystic fluid. No evidence of biliary obstructive disease. Possible mild pancreatitis. Hepatosplenomegaly with significant hepatic steatosis. No evidence of suspicious mass or lymphadenopathy. Bennie Perez MD Gall Bladder Ultrasound 02/05/17 0000 Signed Impressions: Service Date/Time: Sunday, February 05, 2017 13:51 - CONCLUSION: Hyperechoic liver characteristic of steatosis. Non-shadowing filling defects within the gallbladder characteristic of thick sludge or noncalcified stones. No evidence of biliary obstructive disease. Bennie Perez MD Assessment and Plan Problem List: (1) Gallstones and inflammation of gallbladder without obstruction (2) Umbilical hernia (3) Pancreatitis (4) Elevated liver enzymes (5) Acute gallstone pancreatitis (6) Abnormal CT of the abdomen (7) HIV (human immunodeficiency virus infection) (8) Thrombocytopenia (9) Jaundice Assessment and Plan This is a 56-year-old male with past medical history of HIV; with gallstone pancreatitis -Okay for clear liquids -Hold anticoagulation -Continue to trend liver enzymes and lipase -NPO after MN -Obtain consents -Patient scheduled for OR tomorrow at 2pm as long as liver enzymes and lipase continue to trend down Attending Statement NOTE FOR SURGICAL ATTENDING, DR. DEWEY ARREGUIN Patient seen and examined Abdominal pain right upper quadrant and an umbilical hernia Patient has symptomatic cholelithiasis Consider proceeding to operating room tomorrow for laparoscopic cholecystectomy and umbilical hernia repair I agree with above assessment and plan. The exam, history, and the medical decision-making described in the above note were completed with the assistance of the mid-level provider. I reviewed and agree with the findings presented. I attest that I had a [id number] encounter with the patient on the same day, and personally performed and documented my assessment and findings in the medical record. The following services were provided during this hospital visit: Chart data review, vital sign assessments/reviewing monitor data Review of consultations notes if present. Medication orders/review and/or management Ordering and/or reviewing lab tests Ordering and/or interpreting/reviewing x-rays and/or diagnostic studies Care of the patient and discussion of the patient with the care team Documentation time To help prompt me to consider important information that might be impacting today's encounter and assessment, information from prior notes written by myself or my colleagues may have been "brought forward/copy and pasted" into today's note. Problem Qualifiers (1) Umbilical hernia: Qualified Code: K42.9 - Umbilical hernia without obstruction and without gangrene (2) Pancreatitis: Qualified Code: K85.10 - Acute biliary pancreatitis without infection or necrosis Melissa López Feb 06, 2017 15:09 Dewey Arreguin MD Feb 06, 2017 19:54
[2017-02-06 16:00] VITALS: BP 140/83; PULSE 82; RESP 16; TEMP 100.5; O2SAT 93
[2017-02-06 20:00] VITALS: BP 146/82; PULSE 72; PULSE 77; RESP 18; TEMP 100.1; O2SAT 95
[2017-02-06 21:20] LABS: MEAN CORPUSCULAR HGB CONC 36.4 % (32.0-36.0)
[2017-02-07] VITALS (7 sets, daily range): BP systolic 115–162; BP diastolic 63–95; PULSE 63–80; RESP 12–20; TEMP 96.4–100.2; O2SAT 94–96
[2017-02-07] MEDS: PIPERACIL-TAZO 3.375 GM PREMIX 50 ML IV SCH ×4 (03:42→20:17)
[2017-02-07] MEDS: DOCUSATE SODIUM 100 MG CAP PO SCH ×2 (03:42→17:38)
[2017-02-07] MEDS: SODIUM CHLOR 0.9% 1000 ML INJ 1,000 ML IV SCH ×2 (03:42→17:37)
[2017-02-07 04:25] LABS: AUTOMATED NEUTROPHIL # 4.8 TH/MM3 (1.8-7.7); BASOPHIL % 0.3 % (0.0-2.0); EOSINOPHIL # 0.1 TH/MM3 (0-0.4); EOSINOPHIL % 1.4 % (0.0-4.0); LYMPH % 19.2 % (9.0-44.0); LYMPHOCYTE # 1.3 TH/MM3 (1.0-4.8); MEAN CELL VOLUME 90.3 FL (80.0-100.0); MEAN CORPUSCULAR HEMOGLOBIN 32.9 PG (27.0-34.0); MONO % 9.3 % (0.0-8.0); NEUT % 69.8 % (16.0-70.0); PLATELET COUNT 127 TH/MM3 (150-450); RED BLOOD COUNT 3.88 MIL/MM3 (4.50-5.90); RED CELL DISTRIBUTION WIDTH 15.5 % (11.6-17.2); WHITE BLOOD COUNT 6.8 TH/MM3 (4.0-11.0)
[2017-02-07 04:38] LABS: ALT (GPT) 144 U/L (12-78); ANION GAP 10 MEQ/L (5-15); AST (GOT) 46 U/L (15-37); BICARBONATE 23.9 MEQ/L (21.0-32.0); BLOOD UREA NITROGEN 10 MG/DL (7-18); CHLORIDE 104 MEQ/L (98-107); GLOMERULAR FILTRATION RATE 91 ML/MIN (>89); POTASSIUM 3.9 MEQ/L (3.5-5.1); SODIUM (NA) 138 MEQ/L (136-145)
[2017-02-07 04:39] LABS: ALKALINE PHOSPHATASE 67 U/L (45-117); TOTAL BILIRUBIN ADULT 4.6 MG/DL (0.2-1.0)
[2017-02-07 04:40] LABS: HEMO FLAGS AUTO DIFF
[2017-02-07 06:55] LABS: PLATELET ESTIMATE SMEAR LOW (NORMAL); PLATELET MORPHOLOGY NORMAL (NORMAL); SCAN/DIFF AUTO DIFF CONFIRMED
[2017-02-07] MEDS: PALIPERIDONE ER 6 MG TAB PO SCH (08:47)
[2017-02-07] MEDS: SODIUM CHLORIDE 0.9% FLUSH 10 ML FLUSH IV FLUSH SCH ×2 (08:47→20:17)
[2017-02-07] MEDS: valACYclovir HCL 500 MG TAB PO SCH (08:47)
[2017-02-07] MEDS: DOLUTEGRAVIR SODIUM 50 MG TAB PO SCH ×2 (08:47→20:17)
[2017-02-07] MEDS: RILPIVIRINE 25 MG TAB PO SCH (08:47)
--- NOTE | 2017-02-07 10:32 | HHI.PR ---
Subjective Remarks This is a pleasant 56-year-old male who has a history of well-controlled HIV who presents to the emergency department with 3 days of abdominal distention and discomfort feeling like a pressure in his abdomen all over, associated with nausea and one episode of vomiting yesterday. He has had some loose stools but he took a laxative because he thought he was constipated. He denies any fevers or chills. He's never had abdominal surgery before. He's never had pain like this before. seen in Emergency room, as per patient he states the pain is generalized, and continue to be generalized, like 5/10 in intensity as a sharp sensation associated to Nausea and vomit yesterday but today improved. 02/06: Seen in his bedroom in the presence of nurse Miss Almanza Judah, he continue with abdominal pain, awaiting evaluation by GI specialist, his MRCP gave no evidence of pericholecystic fluid, no biliary obstruction, possible mild pancreatitis, Hepatosplenomegaly with significant hepatic steatosis, Cholelithiasis, asked for General software support specialist evaluation okay for clear liquids, hold anticoagulation, continue to trend liver enzymes and Lipase, NPO after Midnight and Cholecystectomy for tomorrow. No Nausea, vomit or diarrhea. 02/07: Patient seen in PACU status post Surgery by Doctor Dewey Arreguin, Laparoscopic Cholecystectomy and Umbilical Hernia Repair, no Nausea, vomit or diarrhea, some abdominal pain. following specialist recommendations for discharge probable by tomorrow. Objective Vital Signs Date Time Temp Pulse Resp B/P Pulse Ox O2 Delivery O2 Flow Rate FiO2 02/07/17 04:00 98.5 69 18 130/69 95 02/07/17 00:00 100.2 75 16 115/63 94 02/06/17 20:00 100.1 77 18 146/82 95 02/06/17 20:00 72 02/06/17 16:00 100.5 82 16 140/83 93 02/06/17 12:00 98.9 78 17 143/91 97 I/O 02/06/17 02/06/17 02/06/17 02/07/17 02/07/17 02/07/17 07:00 15:00 23:00 07:00 15:00 23:00 Intake Total 1945 ml 620 ml Output Total 500 ml Balance -500 ml 1945 ml 620 ml Intake Oral 0 ml 620 ml IV Total 1945 ml Output Urine Total 500 ml # Voids 4 2 2 # Bowel Movements 0 0 1 1 Result Diagram: 02/07/17 0353 02/07/17 0353 Imaging Last Impressions Cholangiopancreatography MRI 02/05/17 1630 Signed Impressions: Service Date/Time: Sunday, February 05, 2017 17:21 - CONCLUSION: Cholelithiasis with minimal ascites and pericholecystic fluid. No evidence of biliary obstructive disease. Possible mild pancreatitis. Hepatosplenomegaly with significant hepatic steatosis. No evidence of suspicious mass or lymphadenopathy. Bennie Perez MD Gall Bladder Ultrasound 02/05/17 0000 Signed Impressions: Service Date/Time: Sunday, February 05, 2017 13:51 - CONCLUSION: Hyperechoic liver characteristic of steatosis. Non-shadowing filling defects within the gallbladder characteristic of thick sludge or noncalcified stones. No evidence of biliary obstructive disease. Bennie Perez MD Procedures MRCP Other Results Laboratory Tests Test 02/05/17 02/05/17 02/05/17 02/07/17 13:42 13:49 14:40 03:53 Prothrombin Time 11.5 SEC Prothromb Time International 1.0 RATIO Ratio Activated Partial 27.9 SEC Thromboplast Time Urine Color YELLOW Urine Turbidity CLEAR Urine pH 5.5 Urine Specific [place] 1.023 Urine Protein 100 mg/dL Urine Glucose (UA) NEG mg/dL Urine Ketones 10 mg/dL Urine Occult Blood SMALL Urine Nitrite NEG Urine Bilirubin NEG Urine Urobilinogen 2.0 MG/DL Urine Leukocyte Esterase NEG Urine RBC LESS THAN 1 /hpf Urine WBC 1 /hpf Urine Mucus FEW /lpf Microscopic Urinalysis Comment CULT NOT INDICATED Lactic Acid Level 1.0 mmol/L White Blood Count 6.8 TH/MM3 Red Blood Count 3.88 MIL/MM3 Hemoglobin 12.7 GM/DL Hematocrit 35.0 % Mean Corpuscular Volume 90.3 FL Mean Corpuscular Hemoglobin 32.9 PG Mean Corpuscular Hemoglobin 36.4 % Concent Red Cell Distribution Width 15.5 % Platelet Count 127 TH/MM3 Mean Platelet Volume 8.1 FL Neutrophils (%) (Auto) 69.8 % Lymphocytes (%) (Auto) 19.2 % Monocytes (%) (Auto) 9.3 % Eosinophils (%) (Auto) 1.4 % Basophils (%) (Auto) 0.3 % Neutrophils # (Auto) 4.8 TH/MM3 Lymphocytes # (Auto) 1.3 TH/MM3 Monocytes # (Auto) 0.6 TH/MM3 Eosinophils # (Auto) 0.1 TH/MM3 Basophils # (Auto) 0.0 TH/MM3 CBC Comment AUTO DIFF Differential Comment AUTO DIFF CONFIRMED Platelet Estimate LOW Platelet Morphology Comment NORMAL Sodium Level 138 MEQ/L Potassium Level 3.9 MEQ/L Chloride Level 104 MEQ/L Carbon Dioxide Level 23.9 MEQ/L Anion Gap 10 MEQ/L Blood Urea Nitrogen 10 MG/DL Creatinine 0.87 MG/DL Estimat Glomerular Filtration 91 ML/MIN Rate Random Glucose 119 MG/DL Calcium Level 8.3 MG/DL Total Bilirubin 4.6 MG/DL Aspartate Amino Transf 46 U/L (AST/SGOT) Alanine Aminotransferase 144 U/L (ALT/SGPT) Alkaline Phosphatase 67 U/L Total Protein 6.4 GM/DL Albumin 3.1 GM/DL Lipase 272 U/L Objective Remarks GENERAL:Well appearing, no acute distress SKIN: Focused skin assessment warm and dry. HEAD: Atraumatic. Normocephalic. EYES: Pupils equal and round. No injection or drainage. Scleral icterus. ENT: Moist mucous membranes NECK: Trachea midline. CARDIOVASCULAR: Regular rate and rhythm. No murmur appreciated. RESPIRATORY: Clear to auscultation. Breath sounds equal bilaterally. GASTROINTESTINAL: Abdomen soft, dressed surgical wounds. MUSCULOSKELETAL: No obvious deformities. NEUROLOGICAL: Awake and alert. No obvious cranial nerve deficits. Moving all extremities. PSYCHIATRIC: Appropriate mood and affect; insight and judgment normal. 1. Acute Pancreatitis, Lipase 2330 2. Hyperbilirubinemia 3. Cholecystitis suspected on admission was given IV antibiotics, he had low grade fever and probable no Leukocytosis due to HIV consult made to Doctor Miller by ER specialist recommended for MRCP tomorrow. 4. HIV well controlled on anti retroviral Therapy. DVT prophylaxis with Lovenox GI prophylaxis with Protonix Discussed with ER specialist Doctor Edie Leo appreciated. Code Status Full Code. Discussed Condition With Medications and IVs Current Medications Medications (Trade) Dose Ordered Sig/Radha Route Start Time Stop Time Status Last Admin (NS 1000 ml Inj) 1,000 ml @ 100 mls/hr Q10H IV 02/05/17 15:00 02/07/17 03:42 (NS Flush) 2 ml UNSCH PRN IV FLUSH 02/05/17 15:00 (NS Flush) 2 ml BID IV FLUSH 02/05/17 21:00 02/05/17 21:51 (Tylenol) 650 mg Q4H PRN PO 02/05/17 15:00 02/05/17 21:48 (Zofran Inj) 4 mg Q6H PRN IVP 02/05/17 15:00 (Dulcolax Supp) 10 mg DAILY PRN RECTAL 02/05/17 15:00 (Colace) 100 mg Q12H PO 02/05/17 18:00 (Lovenox Inj) 40 mg Q24H SQ 02/05/17 16:00 Hold Naloxone HCl 0.4 mg 0.4 mg UNSCH PRN IV 02/05/17 15:00 (Zosyn 3.375 Gm Premix) 50 ml @ 100 mls/hr Q6H IV 02/05/17 21:00 02/07/17 08:47 (Epivir) 300 mg DAILY PO 02/06/17 09:00 02/07/17 08:47 (Invega Er) 6 mg DAILY PO 02/06/17 09:00 02/07/17 08:47 (Edurant) 25 mg DAILY PO 02/06/17 09:00 02/07/17 08:47 (Valtrex) 1,000 mg DAILY PO 02/06/17 09:00 02/07/17 08:47 A/P Assessment and Plan 1. Acute Pancreatitis, Improved Lipase 2330 on admission today 272 secondary to Cholelithiasis status post Laparoscopic Cholecystectomy. Liver enzymes trending down follow in am tomorrow for discharge 2. Umbilical Hernia status post Umbilical Hernia repair 3. Cholecystitis suspected on admission, no signs of infection will discontinue antibiotics. 4. HIV well controlled on anti retroviral Therapy. continue DVT prophylaxis with Lovenox GI prophylaxis with Protonix Code Status Full Code. Discussed Condition With Patient and nurse in PACU Discharge Planning Expected by tomorrow. Rudy Pickard MD Feb 07, 2017 10:32
[2017-02-07] MEDS ORDERED: PROPOFOL 200 MG/20 ML AMP IV ONE (13:13)
[2017-02-07] MEDS ORDERED: ONDANSETRON HCL 4 MG/2 ML VIAL IV PUSH ONE (13:13)
[2017-02-07] MEDS ORDERED: NEOSTIGMINE 3 MG/3 ML SYR IV ONE (13:13)
[2017-02-07] MEDS ORDERED: LACTATED RINGER'S 1000 ML INJ 1,000 ML IV ONE (13:13)
[2017-02-07] MEDS ORDERED: BUPIVACAINE/EPINEPHRINE 0.25% PF 30 ML VIAL ONE (13:48)
[2017-02-07] MEDS ORDERED: fentaNYL CITRATE 250 MCG/5 ML AMP ONE (14:28)
[2017-02-07] MEDS ORDERED: MIDAZOLAM HCL 2 MG/2 ML VIAL ONE (14:28)
[2017-02-07] MEDS ORDERED: SUGAMMADEX SODIUM 200 MG/2 ML VIAL IV PUSH ONE ×2 (14:29)
[2017-02-07] MEDS ORDERED: DEXAMETHASONE SOD PHOS 4 MG/ML VIAL ONE (14:29)
--- NOTE | 2017-02-07 16:36 | HHI.PR ---
cc: Dewey Arreguin MD Immediate Post Op Note Procedure Date: Feb 07, 2017 Pre Op Diagnosis: (1) Umbilical hernia (2) Pancreatitis (3) Thrombocytopenia (4) HIV (human immunodeficiency virus infection) (5) Gallstones and inflammation of gallbladder without obstruction (6) Acute gallstone pancreatitis Post Op Diagnosis: (1) Umbilical hernia (2) Pancreatitis (3) Thrombocytopenia (4) HIV (human immunodeficiency virus infection) (5) Abnormal CT of the abdomen (6) Gallstones and inflammation of gallbladder without obstruction (7) Elevated liver enzymes (8) Acute gallstone pancreatitis Surgeon: Dewey Arreguin Sergeant [employer]ile Crewman(s): Please refer to or record Procedure: Laparoscopic cholecystectomy Findings: Inflamed gallbladder Umbilical hernia Complications: None Specimen(s) removed: Inflamed gallbladder Estimated blood loss: 50 cc Anesthesia: General Drains: None IVF Patient to: PACU Patient Condition: Good Implant/Devices: SEE IMPLANT LOG (if applicable) Dewey Arreguin MD Feb 07, 2017 16:36
[2017-02-07] MEDS ORDERED: Post-op Orders (for Pharmacy) MISC XX ONE (16:45)
[2017-02-07] MEDS ORDERED: ACETAMINOPHEN/HYDROcodone 325 MG/5 MG TAB PO PRN (16:45)
[2017-02-07] MEDS ORDERED: ONDANSETRON HCL 4 MG/2 ML VIAL IV PRN (16:45)
[2017-02-07] MEDS ORDERED: DO NOT ADM ANY ANTICOAGULANT DRUGS PRN (17:00)
--- NOTE | 2017-02-07 17:22 | HHI.GIFU ---
Subjective Remarks pt off floor for surgical procedure Objective Vitals I&O Laboratory Laboratory Tests Physical Exam Assessment and Plan Plan Latisah Lopez Feb 07, 2017 17:22
[2017-02-08] VITALS: BP 119/69; PULSE 70; RESP 21; TEMP 97.9; O2SAT 93
[2017-02-08] MEDS: PIPERACIL-TAZO 3.375 GM PREMIX 50 ML IV SCH (02:28)
[2017-02-08] MEDS: SODIUM CHLOR 0.9% 1000 ML INJ 1,000 ML IV SCH (05:46)
[2017-02-08] MEDS: DOCUSATE SODIUM 100 MG CAP PO SCH (05:46)
[2017-02-08 07:23] LABS: ALT (GPT) 124 U/L (12-78); ANION GAP 10 MEQ/L (5-15); AST (GOT) 47 U/L (15-37); BICARBONATE 24.4 MEQ/L (21.0-32.0); BLOOD UREA NITROGEN 10 MG/DL (7-18); CHLORIDE 106 MEQ/L (98-107); GLOMERULAR FILTRATION RATE 89 ML/MIN (>89); MAGNESIUM 2.2 MG/DL (1.5-2.5); POTASSIUM 3.8 MEQ/L (3.5-5.1); SODIUM (NA) 140 MEQ/L (136-145)
[2017-02-08 07:29] LABS: ALKALINE PHOSPHATASE 63 U/L (45-117); TOTAL BILIRUBIN ADULT 2.1 MG/DL (0.2-1.0)
[2017-02-08 08:00] VITALS: BP 118/71; PULSE 62; RESP 17; TEMP 96.6; O2SAT 95
[2017-02-08] MEDS: DOLUTEGRAVIR SODIUM 50 MG TAB PO SCH (09:17)
[2017-02-08] MEDS: PALIPERIDONE ER 6 MG TAB PO SCH (09:17)
[2017-02-08] MEDS: SODIUM CHLORIDE 0.9% FLUSH 10 ML FLUSH IV FLUSH SCH (09:17)
[2017-02-08] MEDS: valACYclovir HCL 500 MG TAB PO SCH (09:17)
[2017-02-08] MEDS: RILPIVIRINE 25 MG TAB PO SCH (09:17)
[2017-02-08 09:28] VITALS: O2SAT 94
--- NOTE | 2017-02-08 10:01 | HHI.PR ---
Subjective Remarks This is a pleasant 56-year-old male who has a history of well-controlled HIV who presents to the emergency department with 3 days of abdominal distention and discomfort feeling like a pressure in his abdomen all over, associated with nausea and one episode of vomiting yesterday. He has had some loose stools but he took a laxative because he thought he was constipated. He denies any fevers or chills. He's never had abdominal surgery before. He's never had pain like this before. seen in Emergency room, as per patient he states the pain is generalized, and continue to be generalized, like 5/10 in intensity as a sharp sensation associated to Nausea and vomit yesterday but today improved. 02/06: Seen in his bedroom in the presence of nurse Miss Brownika Judah, he continue with abdominal pain, awaiting evaluation by GI specialist, his MRCP gave no evidence of pericholecystic fluid, no biliary obstruction, possible mild pancreatitis, Hepatosplenomegaly with significant hepatic steatosis, Cholelithiasis, asked for General strategic planning specialist evaluation okay for clear liquids, hold anticoagulation, continue to trend liver enzymes and Lipase, NPO after Midnight and Cholecystectomy for tomorrow. No Nausea, vomit or diarrhea. 02/07: Patient seen in PACU status post Surgery by Doctor Dewey Arreguin, Laparoscopic Cholecystectomy and Umbilical Hernia Repair, no Nausea, vomit or diarrhea, some abdominal pain. following specialist recommendations for discharge probable by tomorrow. 02/08: Seen in his bedroom, discussed with nurse Lisa has been walking, his Antibiotics were discontinued, continue Diet and tolerating No Nausea, vomit or diarrhea. awaiting final by General Surgery for Discharge. Objective Vital Signs Date Time Temp Pulse Resp B/P Pulse Ox O2 Delivery O2 Flow Rate FiO2 02/08/17 08:00 96.6 62 17 118/71 95 02/08/17 00:00 97.9 70 21 119/69 93 02/07/17 20:20 68 02/07/17 20:00 96.8 80 20 155/95 95 02/07/17 17:15 98.2 73 18 149/90 96 Nasal Cannula 2 02/07/17 17:00 74 21 145/91 95 Nasal Cannula 3 02/07/17 16:45 73 20 145/85 95 Nasal Cannula 3 02/07/17 16:30 70 20 152/91 93 Nasal Cannula 3 02/07/17 16:23 75 20 158/93 92 02/07/17 16:22 98.8 70 20 167/103 92 Nasal Cannula 3 02/07/17 16:00 96.4 65 20 162/87 96 02/07/17 12:00 97.1 67 16 129/86 95 I/O 02/07/17 02/07/17 02/07/17 02/08/17 02/08/17 02/08/17 07:00 15:00 23:00 07:00 15:00 23:00 Intake Total 2133 ml 3950 ml 989 ml Output Total 150 ml 500 ml Balance 2133 ml 3800 ml 489 ml Intake Oral 0 ml 120 ml 120 ml IV Total 2133 ml 2630 ml 869 ml Other 1200 ml Output Urine Total 500 ml Estimated Blood Loss 50 ml Other 100 ml # Voids 2 0 2 # Bowel Movements 1 0 0 0 Result Diagram: 02/07/17 0353 02/08/17 0545 Imaging Last Impressions Cholangiopancreatography MRI 02/05/17 1630 Signed Impressions: Service Date/Time: Sunday, February 05, 2017 17:21 - CONCLUSION: Cholelithiasis with minimal ascites and pericholecystic fluid. No evidence of biliary obstructive disease. Possible mild pancreatitis. Hepatosplenomegaly with significant hepatic steatosis. No evidence of suspicious mass or lymphadenopathy. Bennie Perez MD Gall Bladder Ultrasound 02/05/17 0000 Signed Impressions: Service Date/Time: Sunday, February 05, 2017 13:51 - CONCLUSION: Hyperechoic liver characteristic of steatosis. Non-shadowing filling defects within the gallbladder characteristic of thick sludge or noncalcified stones. No evidence of biliary obstructive disease. Bennie Perez MD Procedures MRCP Other Results Laboratory Tests Test 02/05/17 02/05/17 02/05/17 02/07/17 13:42 13:49 14:40 03:53 Prothrombin Time 11.5 SEC Prothromb Time International 1.0 RATIO Ratio Activated Partial 27.9 SEC Thromboplast Time Urine Color YELLOW Urine Turbidity CLEAR Urine pH 5.5 Urine Specific [place] 1.023 Urine Protein 100 mg/dL Urine Glucose (UA) NEG mg/dL Urine Ketones 10 mg/dL Urine Occult Blood SMALL Urine Nitrite NEG Urine Bilirubin NEG Urine Urobilinogen 2.0 MG/DL Urine Leukocyte Esterase NEG Urine RBC LESS THAN 1 /hpf Urine WBC 1 /hpf Urine Mucus FEW /lpf Microscopic Urinalysis Comment CULT NOT INDICATED Lactic Acid Level 1.0 mmol/L White Blood Count 6.8 TH/MM3 Red Blood Count 3.88 MIL/MM3 Hemoglobin 12.7 GM/DL Hematocrit 35.0 % Mean Corpuscular Volume 90.3 FL Mean Corpuscular Hemoglobin 32.9 PG Mean Corpuscular Hemoglobin 36.4 % Concent Red Cell Distribution Width 15.5 % Platelet Count 127 TH/MM3 Mean Platelet Volume 8.1 FL Neutrophils (%) (Auto) 69.8 % Lymphocytes (%) (Auto) 19.2 % Monocytes (%) (Auto) 9.3 % Eosinophils (%) (Auto) 1.4 % Basophils (%) (Auto) 0.3 % Neutrophils # (Auto) 4.8 TH/MM3 Lymphocytes # (Auto) 1.3 TH/MM3 Monocytes # (Auto) 0.6 TH/MM3 Eosinophils # (Auto) 0.1 TH/MM3 Basophils # (Auto) 0.0 TH/MM3 CBC Comment AUTO DIFF Differential Comment AUTO DIFF CONFIRMED Platelet Estimate LOW Platelet Morphology Comment NORMAL Lipase 272 U/L Test 02/08/17 05:45 Sodium Level 140 MEQ/L Potassium Level 3.8 MEQ/L Chloride Level 106 MEQ/L Carbon Dioxide Level 24.4 MEQ/L Anion Gap 10 MEQ/L Blood Urea Nitrogen 10 MG/DL Creatinine 0.89 MG/DL Estimat Glomerular Filtration 89 ML/MIN Rate Random Glucose 118 MG/DL Calcium Level 8.4 MG/DL Phosphorus Level 2.2 MG/DL Magnesium Level 2.2 MG/DL Total Bilirubin 2.1 MG/DL Aspartate Amino Transf 47 U/L (AST/SGOT) Alanine Aminotransferase 124 U/L (ALT/SGPT) Alkaline Phosphatase 63 U/L Total Protein 6.0 GM/DL Albumin 2.8 GM/DL Objective Remarks GENERAL:Well appearing, no acute distress SKIN: Focused skin assessment warm and dry. HEAD: Atraumatic. Normocephalic. EYES: Pupils equal and round. No injection or drainage. Scleral icterus. ENT: Moist mucous membranes NECK: Trachea midline. CARDIOVASCULAR: Regular rate and rhythm. No murmur appreciated. RESPIRATORY: Clear to auscultation. Breath sounds equal bilaterally. GASTROINTESTINAL: Abdomen soft, dressed surgical wounds. MUSCULOSKELETAL: No obvious deformities. NEUROLOGICAL: Awake and alert. No obvious cranial nerve deficits. Moving all extremities. PSYCHIATRIC: Appropriate mood and affect; insight and judgment normal. 1. Acute Pancreatitis, Lipase 2330 2. Hyperbilirubinemia 3. Cholecystitis suspected on admission was given IV antibiotics, he had low grade fever and probable no Leukocytosis due to HIV consult made to Doctor Miller by ER specialist recommended for MRCP tomorrow. 4. HIV well controlled on anti retroviral Therapy. DVT prophylaxis with Lovenox GI prophylaxis with Protonix Discussed with ER specialist Doctor Edie Leo appreciated. Code Status Full Code. Discussed Condition With Medications and IVs Current Medications Medications (Trade) Dose Ordered Sig/Radha Route Start Time Stop Time Status Last Admin (NS Flush) 2 ml UNSCH PRN IV FLUSH 02/05/17 15:00 (NS Flush) 2 ml BID IV FLUSH 02/05/17 21:00 02/08/17 09:17 (Tylenol) 650 mg Q4H PRN PO 02/05/17 15:00 02/05/17 21:48 (Dulcolax Supp) 10 mg DAILY PRN RECTAL 02/05/17 15:00 (Colace) 100 mg Q12H PO 02/05/17 18:00 02/08/17 05:46 (Lovenox Inj) 40 mg Q24H SQ 02/05/17 16:00 Hold (Narcan Inj) 0.4 mg UNSCH PRN IV 02/05/17 15:00 (Epivir) 300 mg DAILY PO 02/06/17 09:00 02/08/17 09:17 (Invega Er) 6 mg DAILY PO 02/06/17 09:00 02/08/17 09:17 (Edurant) 25 mg DAILY PO 02/06/17 09:00 02/08/17 09:17 (Valtrex) 1,000 mg DAILY PO 02/06/17 09:00 02/08/17 09:17 (Zofran Inj) 4 mg Q4H PRN IV 02/07/17 16:45 ([place] 5-325 Mg) 1 tab Q4H PRN PO 02/07/17 16:45 02/07/17 17:48 Miscellaneous Information ALL NURSING DEPARTME... UNSCH PRN .XX 02/07/17 17:00 02/08/17 16:59 A/P Assessment and Plan 1. Acute Pancreatitis, Improved Lipase 2330 on admission today 272 secondary to Cholelithiasis status post Laparoscopic Cholecystectomy. Liver enzymes continue trending down. 2. Umbilical Hernia status post Umbilical Hernia repair 3. Cholecystitis suspected on admission, no signs of infection will discontinued antibiotics. 4. HIV well controlled on anti retroviral Therapy. continue DVT prophylaxis with Lovenox GI prophylaxis with Protonix Code Status Full Code. Discussed Condition With Patient and nurse Miss Gonzalez Discharge Planning Expected later today after General Surgery Clearance. Rudy Pickard MD Feb 08, 2017 10:01
--- NOTE | 2017-02-08 11:38 | HHI.GIFU ---
Subjective Remarks Patient is resting in bed, inquiring about going home, he has some abdomen pain at surgical site, other castaneda, he is doing good, no nausea or vomiting Objective Vitals I&O Vital Signs Date Time Temp Pulse Resp B/P Pulse Ox O2 Delivery O2 Flow Rate FiO2 02/08/17 08:00 96.6 62 17 118/71 95 02/08/17 00:00 97.9 70 21 119/69 93 02/07/17 20:20 68 02/07/17 20:00 96.8 80 20 155/95 95 02/07/17 17:15 98.2 73 18 149/90 96 Nasal Cannula 2 02/07/17 17:00 74 21 145/91 95 Nasal Cannula 3 02/07/17 16:45 73 20 145/85 95 Nasal Cannula 3 02/07/17 16:30 70 20 152/91 93 Nasal Cannula 3 02/07/17 16:23 75 20 158/93 92 02/07/17 16:22 98.8 70 20 167/103 92 Nasal Cannula 3 02/07/17 16:00 96.4 65 20 162/87 96 02/07/17 12:00 97.1 67 16 129/86 95 I/O 02/07/17 02/07/17 02/07/17 02/08/17 02/08/17 02/08/17 07:00 15:00 23:00 07:00 15:00 23:00 Intake Total 2133 ml 3950 ml 989 ml Output Total 150 ml 500 ml Balance 2133 ml 3800 ml 489 ml Intake Oral 0 ml 120 ml 120 ml IV Total 2133 ml 2630 ml 869 ml Other 1200 ml Output Urine Total 500 ml Estimated Blood Loss 50 ml Other 100 ml # Voids 2 0 2 # Bowel Movements 1 0 0 0 Laboratory Laboratory Tests Test 02/08/17 05:45 Sodium Level 140 Potassium Level 3.8 Chloride Level 106 Carbon Dioxide Level 24.4 Anion Gap 10 Blood Urea Nitrogen 10 Creatinine 0.89 Estimat Glomerular Filtration 89 Rate Random Glucose 118 Calcium Level 8.4 Phosphorus Level 2.2 Magnesium Level 2.2 Total Bilirubin 2.1 Aspartate Amino Transf 47 (AST/SGOT) Alanine Aminotransferase 124 (ALT/SGPT) Alkaline Phosphatase 63 Total Protein 6.0 Albumin 2.8 Imaging Last Impressions Cholangiopancreatography MRI 02/05/17 1630 Signed Impressions: Service Date/Time: Sunday, February 05, 2017 17:21 - CONCLUSION: Cholelithiasis with minimal ascites and pericholecystic fluid. No evidence of biliary obstructive disease. Possible mild pancreatitis. Hepatosplenomegaly with significant hepatic steatosis. No evidence of suspicious mass or lymphadenopathy. Bennie Perez MD Gall Bladder Ultrasound 02/05/17 0000 Signed Impressions: Service Date/Time: Sunday, February 05, 2017 13:51 - CONCLUSION: Hyperechoic liver characteristic of steatosis. Non-shadowing filling defects within the gallbladder characteristic of thick sludge or noncalcified stones. No evidence of biliary obstructive disease. Bennie Perez MD Physical Exam Physical Examination HEENT: EOMI; normocephalic; atraumatic; + icterus. NECK: Neck is supple CHEST: CTA CARDIAC: RRR ABDOMEN: Soft, mild tenderness at surgical site; no hepatosplenomegaly; bowel sounds are present in all four quadrants. EXTREMITIES: No clubbing, cyanosis, or edema. SKIN: Normal; no rash; no jaundice. MELTER OPERATOR: No focal deficits; alert and oriented times three. Assessment and Plan Plan - Gallstone Pancreatitis.Resolved s/p Laparoscopic Cholecystectomy and Umbilical Hernia (02/07/17) Repair, MRCP (02/05/17)---->Cholelithiasis with minimal ascites and pericholecystic fluid. No evidence of biliary obstructive disease. Possible mild pancreatitis. Hepatosplenomegaly with significant hepatic steatosis. No evidence of suspicious mass or lymphadenopathy. Gall Bladder Ultrasound (02/05/17)----> Hyperechoic liver characteristic of steatosis. Non-shadowing filling defects within the gallbladder characteristic of thick sludge or noncalcified stones. No evidence of biliary obstructive disease. LFTs elevated in obstructive pattern. ? Choledocholithiasis vs sludge. - Elevated LFTs- Trending down, MRCP no evidence of biliary obstruction - Cholecystitis- Laparoscopic Cholecystectomy and Umbilical Hernia Repair on () - HIV, Dx 1983, on HAART. States viral load undetectable. PLAN: - CARLO - Okay to DC from GI stand point - F/u with Gi in 2 weeks with labs - Further recommendations to follow based on results of above - Pt seen and examined by Dr. Mckeon and myself and this note is written on his behalf Alessandra KhanP Feb 08, 2017 11:38
[2017-02-08 12:00] VITALS: BP 129/79; PULSE 65; RESP 16; TEMP 98.7; O2SAT 94
[2017-02-08] MEDS ORDERED: NORC5TAB PO (14:08)
--- NOTE | 2017-02-08 14:30 | HHI.PR ---
Subjective Subjective Notes Wants to go home; tolerated breakfast and lunch Objective Vitals/I&O Vital Signs Date Time Temp Pulse Resp B/P Pulse Ox O2 Delivery O2 Flow Rate FiO2 02/08/17 12:00 98.7 65 16 129/79 94 02/08/17 09:28 21 02/07/17 17:15 Nasal Cannula 2 Labs Laboratory Tests Test 02/08/17 05:45 Sodium Level 140 Potassium Level 3.8 Chloride Level 106 Carbon Dioxide Level 24.4 Anion Gap 10 Blood Urea Nitrogen 10 Creatinine 0.89 Estimat Glomerular Filtration 89 Rate Random Glucose 118 Calcium Level 8.4 Phosphorus Level 2.2 Magnesium Level 2.2 Total Bilirubin 2.1 Aspartate Amino Transf 47 (AST/SGOT) Alanine Aminotransferase 124 (ALT/SGPT) Alkaline Phosphatase 63 Total Protein 6.0 Albumin 2.8 Radiology Last 48 hours Impressions Cholangiopancreatography MRI 02/05/17 1630 Signed Impressions: Service Date/Time: Sunday, February 05, 2017 17:21 - CONCLUSION: Cholelithiasis with minimal ascites and pericholecystic fluid. No evidence of biliary obstructive disease. Possible mild pancreatitis. Hepatosplenomegaly with significant hepatic steatosis. No evidence of suspicious mass or lymphadenopathy. Bennie Perez MD Gall Bladder Ultrasound 02/05/17 0000 Signed Impressions: Service Date/Time: Sunday, February 05, 2017 13:51 - CONCLUSION: Hyperechoic liver characteristic of steatosis. Non-shadowing filling defects within the gallbladder characteristic of thick sludge or noncalcified stones. No evidence of biliary obstructive disease. Bennie Perez MD Narrative Exam Steristrips and bandaids intact A/P Problem List: (1) Gallstones and inflammation of gallbladder without obstruction (2) Umbilical hernia (3) Pancreatitis (4) Elevated liver enzymes (5) Acute gallstone pancreatitis (6) Abnormal CT of the abdomen (7) HIV (human immunodeficiency virus infection) (8) Thrombocytopenia (9) Jaundice Assessment and Plan POD#1 Lap danielito Ok for d/c from GS standpoint F/U Dr. Arreguin next week Problem Qualifiers (1) Umbilical hernia: Qualified Code: K42.9 - Umbilical hernia without obstruction and without gangrene (2) Pancreatitis: Qualified Code: K85.10 - Acute biliary pancreatitis without infection or necrosis Vincent Schwarz MD Feb 08, 2017 14:30
--- NOTE | 2017-02-08 14:47 | HHI.DS ---
Discharge Summary Admission Date Feb 05, 2017 at 15:01 Discharge Date: Feb 08, 2017 Admitting Diagnosis pancreatitis, jaundice (1) Umbilical hernia ICD Code: K42.9 Diagnosis: Principal (2) Pancreatitis ICD Code: K85.90 Diagnosis: Principal (3) HIV (human immunodeficiency virus infection) ICD Code: Z21 Diagnosis: Secondary (4) Gallstones and inflammation of gallbladder without obstruction ICD Code: K80.00 Diagnosis: Principal (5) Elevated liver enzymes ICD Code: R74.8 Diagnosis: Principal (6) Acute gallstone pancreatitis ICD Code: K85.10 Diagnosis: Principal Procedures MRCP Laparoscopic Cholecystectomy Umbilical Hernia repair Brief History - From Admission This is a pleasant 56-year-old male who has a history of well-controlled HIV who presents to the emergency department with 3 days of abdominal distention and discomfort feeling like a pressure in his abdomen all over, associated with nausea and one episode of vomiting yesterday. He has had some loose stools but he took a laxative because he thought he was constipated. He denies any fevers or chills. He's never had abdominal surgery before. He's never had pain like this before. seen in Emergency room, as per patient he states the pain is generalized, and continue to be generalized, like 5/10 in intensity as a sharp sensation associated to Nausea and vomit yesterday but today improved. CBC/BMP: 02/07/17 0353 02/08/17 0545 Significant Findings Laboratory Tests Test 02/06/17 02/07/17 02/08/17 03:30 03:53 05:45 Red Blood Count 4.04 MIL/MM3 3.88 MIL/MM3 (4.50-5.90) (4.50-5.90) Hematocrit 36.7 % 35.0 % (39.0-51.0) (39.0-51.0) Mean Corpuscular Hemoglobin 36.2 % 36.4 % Concent (32.0-36.0) (32.0-36.0) Platelet Count 121 TH/MM3 127 TH/MM3 (150-450) (150-450) Neutrophils (%) (Auto) 71.1 % (16.0-70.0) Monocytes (%) (Auto) 11.1 % 9.3 % (0.0-8.0) (0.0-8.0) Estimat Glomerular Filtration 85 ML/MIN (>89) Rate Random Glucose 136 MG/DL 119 MG/DL 118 MG/DL (74-106) (74-106) (74-106) Calcium Level 8.2 MG/DL 8.3 MG/DL 8.4 MG/DL (8.5-10.1) (8.5-10.1) (8.5-10.1) Total Bilirubin 4.9 MG/DL 4.6 MG/DL 2.1 MG/DL (0.2-1.0) (0.2-1.0) (0.2-1.0) Aspartate Amino Transf 60 U/L (15-37) 46 U/L (15-37) 47 U/L (15-37) (AST/SGOT) Alanine Aminotransferase 192 U/L (12-78) 144 U/L (12-78) 124 U/L (12-78) (ALT/SGPT) Total Protein 6.3 GM/DL 6.0 GM/DL (6.4-8.2) (6.4-8.2) Albumin 3.3 GM/DL 3.1 GM/DL 2.8 GM/DL (3.4-5.0) (3.4-5.0) (3.4-5.0) Lipase 552 U/L (73-393) Hemoglobin 12.7 GM/DL (13.0-17.0) Platelet Estimate LOW (NORMAL) Phosphorus Level 2.2 MG/DL (2.5-4.9) Imaging Last Impressions Cholangiopancreatography MRI 02/05/17 1630 Signed Impressions: Service Date/Time: Sunday, February 05, 2017 17:21 - CONCLUSION: Cholelithiasis with minimal ascites and pericholecystic fluid. No evidence of biliary obstructive disease. Possible mild pancreatitis. Hepatosplenomegaly with significant hepatic steatosis. No evidence of suspicious mass or lymphadenopathy. Bennie Perez MD Gall Bladder Ultrasound 02/05/17 0000 Signed Impressions: Service Date/Time: Sunday, February 05, 2017 13:51 - CONCLUSION: Hyperechoic liver characteristic of steatosis. Non-shadowing filling defects within the gallbladder characteristic of thick sludge or noncalcified stones. No evidence of biliary obstructive disease. Bennie Perez MD PE at Discharge GENERAL:Well appearing, no acute distress SKIN: Focused skin assessment warm and dry. HEAD: Atraumatic. Normocephalic. EYES: Pupils equal and round. No injection or drainage. Scleral icterus. ENT: Moist mucous membranes NECK: Trachea midline. CARDIOVASCULAR: Regular rate and rhythm. No murmur appreciated. RESPIRATORY: Clear to auscultation. Breath sounds equal bilaterally. GASTROINTESTINAL: Abdomen soft, dressed surgical wounds. MUSCULOSKELETAL: No obvious deformities. NEUROLOGICAL: Awake and alert. No obvious cranial nerve deficits. Moving all extremities. PSYCHIATRIC: Appropriate mood and affect; insight and judgment normal. Hospital Course This is a pleasant 56-year-old male who has a history of well-controlled HIV who presents to the emergency department with 3 days of abdominal distention and discomfort feeling like a pressure in his abdomen all over, associated with nausea and one episode of vomiting yesterday. He has had some loose stools but he took a laxative because he thought he was constipated. He denies any fevers or chills. He's never had abdominal surgery before. He's never had pain like this before. seen in Emergency room, as per patient he states the pain is generalized, and continue to be generalized, like 5/10 in intensity as a sharp sensation associated to Nausea and vomit yesterday but today improved. 02/06: Seen in his bedroom in the presence of nurse Miss Cami So, he continue with abdominal pain, awaiting evaluation by GI specialist, his MRCP gave no evidence of pericholecystic fluid, no biliary obstruction, possible mild pancreatitis, Hepatosplenomegaly with significant hepatic steatosis, Cholelithiasis, asked for General warhead maintenance specialist evaluation okay for clear liquids, hold anticoagulation, continue to trend liver enzymes and Lipase, NPO after Midnight and Cholecystectomy for tomorrow. No Nausea, vomit or diarrhea. 02/07: Patient seen in PACU status post Surgery by Doctor Dewey Arreguin, Laparoscopic Cholecystectomy and Umbilical Hernia Repair, no Nausea, vomit or diarrhea, some abdominal pain. following specialist recommendations for discharge probable by tomorrow. 02/08: Seen in his bedroom, discussed with nurse miss Gonzalez has been walking, his Antibiotics were discontinued, continue Diet and tolerating No Nausea, vomit or diarrhea. awaiting final by General Surgery for Discharge. Assessment and Plan 1. Acute Pancreatitis, Improved Lipase 2330 on admission today 272 secondary to Cholelithiasis status post Laparoscopic Cholecystectomy. Liver enzymes continue trending down. 2. Umbilical Hernia status post Umbilical Hernia repair 3. Cholecystitis suspected on admission, no signs of infection will discontinued antibiotics. 4. HIV well controlled on anti retroviral Therapy. continue DVT prophylaxis with Lovenox GI prophylaxis with Protonix Code Status Full Code. Discussed Condition With Patient and nurse Miss Gonzalez Discharge Planning Discharge Home he was cleared to go home by General Surgery Pt Condition on Discharge: Good Discharge Disposition: Discharge Home Discharge Time: > 30 minutes Discharge Instructions DIET: Follow Instructions for: As Tolerated, No Restrictions Activities you can perform: Regular-No Restrictions Rudy Pickard MD Feb 08, 2017 14:47
--- NOTE | 2017-02-08 18:34 | MP ---
cc: DEWEY ARREGUIN M.D. DATE OF SURGERY 02/07/17 PREOPERATIVE DIAGNOSIS Cholelithiasis, cholecystitis. Umbilical hernia. POSTOPERATIVE DIAGNOSIS Cholelithiasis, cholecystitis. Umbilical hernia. PROCEDURE Laparoscopic cholecystectomy. Umbilical hernia repair ANESTHESIA General. SURGEON Dr. Arreguin INDICATIONS This is a pleasant 56-year-old gentleman with HIV and had an episode of gallstone pancreatitis. Plans were made for above. PROCEDURE The patient was taken to the operating room and placed in the supine position. After anesthesia his abdomen was prepped. A time-out was done. He was given preoperative antibiotics. We make an incision at the umbilicus, enter the hernia and placed a 10 mm trocar. The abdomen was insufflated and three other working ports are placed 5 mm below the xyphoid, 5 mm in between the two previous placed ports and third port in the right upper quadrant. Obviously, the gallbladder is inflamed. His omentum stuck to it which was taken down with the blunt dissection, hydrodissection, electrocautery device. We then dissect up to the neck of the gallbladder. Unfortunately, with the friability the gallbladder it ruptures and stones and the bile and evacuated. We are able to dissect down to the cystic duct which is somewhat enlarged and dilated. We are able place clips across the duct after circumferentially dissecting around it in a slight retrograde fashion as well. Cystic arteries identified and this was triply ligated and transected. The cystic duct is then ligated as well and transected. The gallbladder was then teased off the gallbladder bed, placed in EndoCatch and pulled out through the umbilical incision and passed off the field. We irrigate copiously, remove all the bile stones that had spilled. They were very small dark black stones. Once that was done we checked our dissection site and excellent hemostasis without biliary leakage. We remove all the irrigating solution and had irrigated with 5 liters of saline. We then remove all the trocars after removing the CO2, the umbilical incision is then reapproximated to repair the umbilical hernia with the 0 Vicryl in an interrupted fashion. Skin at all four sites closed with a 4-0 Vicryl. Steri-Strips applied. Sterile bandage applied. The patient tolerate the procedure well and had no immediate postop complications. Dewey Arreguin MD JZACK/CLEO /4:20 PM /6:09 PM [id number]
== END 2017-02-08 15:20 | disposition home or self-care (01) | DRG 418 ==
LOC: NEPD 13:09 → NEDA 15:01 → N07B 18:00
PROVIDERS: ADMIT Internal Medicine; ATTEND Internal Medicine
PROC: 0WQF0ZZ Repair Abdominal Wall, Open Approach (ICD-10-PCS; 2017-02-07)
PROC: 0FT44ZZ Resection of Gallbladder, Percutaneous Endoscopic Approach (ICD-10-PCS; principal; 2017-02-07 14:37)
DX: K85.10 Biliary acute pancreatitis without necrosis or infection (principal); K83.0 Cholangitis; K80.10 Calculus of gallbladder with chronic cholecystitis without obstruction; D69.6 Thrombocytopenia, unspecified; K76.0 Fatty (change of) liver, not elsewhere classified; Z88.8 Allergy status to other drugs, medicaments and biological substances; Z80.1 Family history of malignant neoplasm of trachea, bronchus and lung; Z86.010 Personal history of colon polyps; Z21 Asymptomatic human immunodeficiency virus [HIV] infection status; K42.9 Umbilical hernia without obstruction or gangrene; R74.8 Abnormal levels of other serum enzymes
CPT/HCPCS: 74181; 76377; 76705; 80053; 81001; 82948; 83605; 83690; 83735; 84100; 85025; 85610; 85730; 88304; J1100; J2250; J2405; J2543; J2710; J3010; J7030; J7120